=== PATIENT | female | born 1995 | race Caucasian/White ===

== ENCOUNTER 2020-09-18 14:43 | Outpatient (CLI) | payer BC, SELFPAY ==
[2020-09-18 15:40] LABS: SARS-CoV-2 RNA PCR Negative (Negative)
== END 2020-09-18 14:44 | disposition home or self-care (01) ==
PROVIDERS: PCP Family Medicine
DX: Z31.7 Encounter for procreative management and counseling for gestational carrier (principal); Z20.822 Contact with and (suspected) exposure to COVID-19
CPT/HCPCS: C9803; U0003; U0005

== ENCOUNTER 2020-10-24 09:42 | Outpatient (CLI) | payer BC, SELFPAY ==
[2020-10-24 10:22] LABS: Thyroid Stimulating Hormone Reflex 7.83 u/IU/mL (0.36-3.74)
[2020-10-24 10:23] LABS: Free T4 Free Thyroxine Reflex 1.08 ng/dL (0.76-1.46)
== END 2020-10-24 09:43 | disposition home or self-care (01) ==
PROVIDERS: PCP Family Medicine
DX: Z31.7 Encounter for procreative management and counseling for gestational carrier (principal); Z32.00 Encounter for pregnancy test, result unknown
CPT/HCPCS: 36415; 84439; 84443; 84702

== ENCOUNTER 2020-10-28 08:36 | Outpatient (CLI) | payer BC, SELFPAY | END 2020-10-28 08:37 | disposition home or self-care (01) | LOC: CHSLAB 08:41 | PROVIDERS: PCP Family Medicine | DX: Z31.7 Encounter for procreative management and counseling for gestational carrier (principal) | CPT/HCPCS: 36415; 84702 ==

== ENCOUNTER 2021-06-05 00:21 | Observation (INO) | payer BC, OTHER, SELFPAY ==
--- NOTE | 2021-06-05 00:21 | OBADM ---
This patient, Chapis Das, admitted to the OB room OB Post 115 for observation. Patient/family oriented to hospital policies and general routines including ID bracelet, bed and alarms, visiting hours, pain management, procedures, bathroom and other care routines, personal items, smoking policy, room service/diet, and visiting hours. Patient/Family are encouraged to report perceived risks to care and to ask questions if they do not understand what they are told or what they should do.
[2021-06-05 00:50] VITALS: BP 141/88; PULSE 93
[2021-06-05 00:58] LABS: Add Urine Microscopic? NO; Appearance Urine Clear (Clear); Bilirubin Urine Negative (Negative); Blood Urine Negative (Negative); Color Urine Straw (Yellow); Glucose Urine UA Negative (Negative); Ketones Urine Negative (Negative); Leukocyte Esterase Ur Negative LEU/UL (NEGATIVE); Nitrate Urine Negative (Negative); Protein Urine Negative (Negative); Specific Grav Ur 1.008 (1.001-1.035); Urobilinogen Urine Negative mg/dL (<2.0)
[2021-06-05 01:00] VITALS: BP 126/87; PULSE 87; TEMP 36.6
[2021-06-05 01:15] VITALS: BP 118/83; PULSE 83
--- NOTE | 2021-06-11 07:28 | P.PNOB_ITS ---
OB - Triage/Final Diagnosis Visit Information Date of evaluation: 06/05/21 Reason for evaluation: threatened labor Comments/Additional reasons for admission: I have assessed the risk for this patient, Chapis Das, and determined that she would benefit from obs ervation care. Evaluation Laboratory results: Laboratory Tests 06/05/21 00:43 Urine Color Straw Urine Appearance Clear Urine pH 6.0 Ur Specific [place] 1.008 Urine Protein Negative Urine Glucose (UA) Negative Urine Ketones Negative Ur Blood (Man) Negative Urine Nitrate Negative Urine Bilirubin Negative Urine Urobilinogen Negative Ur Leukocyte Esterase Negative
== END 2021-06-05 01:40 | disposition home or self-care (01) ==
PROVIDERS: Advanced Practice Midwife; Admitting Provider Obstetrics & Gynecology; PCP Family Medicine; Visit Provider Obstetrics & Gynecology
DX: O47.03 False labor before 37 completed weeks of gestation, third trimester (principal); Z3A.35 35 weeks gestation of pregnancy
CPT/HCPCS: 81003; 84112; 87086; 87088; G0378; G0379

== ENCOUNTER 2021-06-06 12:26 | Outpatient (RCR) | payer BC, OTHER, SELFPAY ==
--- NOTE | ~2021-06-06 | US_ITS ---
EXAMINATION: US OB limited w BPP DATE: 06/06/2021 13:42 INDICATION: COVID-19 pneumonia. Third trimester. TECHNIQUE: Real-time pelvic ultrasound was performed. COMPARISON: None. FINDINGS: There is a single living fetus in vertex presentation. The placenta is posterior. heart rate i s 148 beats per minute (bpm). The amniotic fluid index is 10.8 cm, which is normal. Biophysical profile performed by the technologist: breathing (30 sec sustained breathing in 30 minutes): 2 out of 2 movement (3 gross body movements in 30 minutes): 2 out of 2 tone (one episode of pdsdzju-sndigjscr-cfjvmdq limb movement): 2 out of 2 Amniotic fluid pocket (2 cm): 2 out of 2 Total score: 8 out of 8 IMPRESSION: 1. Single living fetus in vertex presentation. 2. Biophysical profile 8 out of 8. Reviewed, dictated and finalized at location B. HOUSE DIRECTOR
[2021-06-06 13:10] VITALS: BP 124/81; PULSE 114
== END 2021-06-27 20:56 | disposition home or self-care (01) ==
LOC: ANHOBOP 12:26
PROVIDERS: PCP Family Medicine; Visit Provider Obstetrics & Gynecology
DX: O09.813 Supervision of pregnancy resulting from assisted reproductive technology, third trimester (principal); Z86.16 Personal history of COVID-19; Z3A.36 36 weeks gestation of pregnancy
CPT/HCPCS: 59025; 76815; 76819

== ENCOUNTER 2021-06-16 12:16 | Outpatient (CLI) | payer BC, OTHER, SELFPAY ==
[2021-06-16 12:46] VITALS: BP 144/92; PULSE 102
[2021-06-16 12:52] LABS: Basophils Absolute Auto 0.1 K/mm3 (0.0-0.1); Basophils Percent Auto 0.6 % (0.2-1.2); Eosinophils Absolute Auto 0.1 K/mm3 (0-0.3); Eosinophils Percent Auto 1.5 % (0-4.4); Hematocrit 33.1 % (37.0-47.0); Hemoglobin 9.7 g/dL (12.0-15.0); Immature Granulocyte Absolute 0.05 K/mm3 (0.00-0.031); Immature Granulocyte Percent A 0.6 % (0-0.5); Lymphocytes Absolute Auto 1.85 K/mm3 (0.9-3.2); Lymphocytes Percent Auto 22.6 % (18.3-44.2); Mean Corpuscular HGB Conc 29.3 g/dl (32-36); Mean Corpuscular Hemoglobin 22.4 pg (26-34); Mean Corpuscular Volume 76.3 fl (80-100); Mean Platelet Volume 10.1 fl (7.4-10.4); Monocytes Absolute Auto 0.9 K/mm3 (0.1-0.6); Monocytes Percent Auto 11.2 % (2.6-8.5); Neutrophils Absolute Auto 5.2 K/mm3 (1.3-6.7); Neutrophils Percent Auto 63.5 % (45.5-73.1); Platelet Count Result 287 k/mm3 (150-375); Red Blood Count 4.34 M/mm3 (4.2-5.4); Red Cell Distribution Width 14.7 % (11.5-14.5); White Blood Count 8.2 K/mm3 (4.5-10.0)
[2021-06-16 12:55] LABS: Add Urine Microscopic? NO; Appearance Urine Clear (Clear); Bilirubin Urine Negative (Negative); Blood Urine Negative (Negative); Color Urine Colorless (Yellow); Glucose Urine UA Negative (Negative); Ketones Urine Negative (Negative); Leukocyte Esterase Ur Negative LEU/UL (NEGATIVE); Nitrate Urine Negative (Negative); Protein Urine Negative (Negative); Urobilinogen Urine Negative mg/dL (<2.0)
[2021-06-16 13:01] VITALS: BP 126/88; PULSE 90
[2021-06-16 13:03] LABS: Creatinine Urine 17.1 mg/dL; Total Protein Urine Random 15 mg/dL; Ur Ttl Prot Creatinine Ratio 0.88 mg/mg (0-0.20)
[2021-06-16 13:13] LABS: Microcytosis 1+ (NORMAL); Platelet Estimate Adequate (Adequate)
[2021-06-16 13:14] LABS: Alanine Aminotransferase 8 U/L (4-35); Albumin Level 3.6 g/dL (3.5-5.1); Alkaline Phosphatase 127 U/L (38-126); Anion Gap 8 mmol/L (8-16); Aspartate Amino Transferase 23 U/L (14-36); Bilirubin,Total 0.3 mg/dL (0.2-1.3); Blood Urea Nitrogen 8 mg/dL (7-17); Calcium 8.7 mg/dL (8.4-10.2); Carbon Dioxide 22 mmol/L (22-30); Chloride 106 mmol/L (98-107); Estimated Glomerular Filt Rate > 60; Glucose 99 mg/dL (65-110); Potassium 3.8 mmol/L (3.4-5.0); Sodium 136 mmol/L (137-145); Uric Acid 5.5 mg/dL (2.5-7.5)
[2021-06-16 13:16] VITALS: BP 124/85; PULSE 96
[2021-06-16 13:31] VITALS: BP 126/89; PULSE 91
[2021-06-16 13:46] VITALS: BP 125/90; PULSE 89
[2021-06-16 13:49] LABS: Specific Grav Ur 1.002 (1.001-1.035)
--- NOTE | 2021-06-16 14:06 | PC.NURSE ---
1350- Spoke to Ty Stephen CNM, BP's and labs reviewed. Orders to discharge to home with 24 hour urine. Patient to call and be seen in office on wednesday.
== END 2021-06-16 14:05 | disposition home or self-care (01) ==
LOC: ANHOBOP 12:21 → ANHOBPP 12:24
PROVIDERS: PCP Family Medicine; Visit Provider Advanced Practice Midwife
DX: O13.9 Gestational [pregnancy-induced] hypertension without significant proteinuria, unspecified trimester (principal); Z3A.00 Weeks of gestation of pregnancy not specified
CPT/HCPCS: 36415; 59025; 80053; 81003; 81050; 82570; 82575; 84156; 84550; 85025; 87086; 99199

== ENCOUNTER 2021-06-17 18:07 | Outpatient (CLI) | payer BC, OTHER, SELFPAY ==
[2021-06-17 19:06] LABS: Collection Time Urine 24 HOURS; Total Volume 24 Hour Urine 3000 ml
[2021-06-17 19:12] LABS: Total Volume 24 Hour Urine 3000 ml
[2021-06-17 19:13] LABS: Patient Weight 166 Lbs
[2021-06-17 19:21] LABS: Total Protein Urine 24 Hr 360 mg/24hr (28-141); Total Protein Urine Random 12 mg/dL
[2021-06-17 19:22] LABS: Creatinine Clearance Urine 112.7 ml/min (75-125); Creatinine Urine 43.5 mg/dL
== END 2021-06-17 18:08 | disposition home or self-care (01) ==
PROVIDERS: PCP Family Medicine; Visit Provider Obstetrics & Gynecology
DX: Z34.90 Encounter for supervision of normal pregnancy, unspecified, unspecified trimester (principal); Z3A.00 Weeks of gestation of pregnancy not specified
CPT/HCPCS: 81050; 82575; 84156

== ENCOUNTER 2021-06-18 18:56 | Inpatient (IN) | payer BC, OTHER, SELFPAY ==
[2021-06-18] VITALS (11 sets, daily range): BP systolic 103–148; BP diastolic 63–98; PULSE 76–104; RESP 18; TEMP 36.8; BMI 30.8
--- OUTSIDE RECORDS SUMMARY | 2021-06-18 19:01 | XMS_ITS | Encounter Summary ---
:1995 Author Reason for Visit NST [id number] EDC 07/04/2021 Assessment and Plan 1. Hypothyroidism in ? non-stress test Discussion Note: None recorded.Patient educational handouts: No information available. Plan of Care Reminders Provider Appointments U/s Ob 06/23/2021 Ultrasou nd, TECH Growth 10:00AM ? Ob Routine 06/23/2021 Julia Schroeder, 11:45AM CNM ? Nst 06/23/2021 Nst, , EQUI P 11:00AM ? U/S OB BPP 06/30/2021 Ultras ound, TECH 10:30AM ? Ob Routine 06/30/2021 Samara Th erese 11:30AM MD Shereen ? Nst 06/30/2021 Nst, , EQUI P 11:00AM ? Repeat Pap on or around Mikael yani Craig 12/23/2021 MD [facility] None ? ? recorded. Referral None ? ? recorded. Procedures None ? ? recorded. Surgeries None ? ? recorded. Imaging Non-stress 06/09/2021 [facility]ambo avelar Test Medications Name Start Date ? ? ? Synthroid 25 mcg tablet ? Take 1 tablet every day by oral route. Medications Administered None recorded. Vitals Height Weight BMI Blood Pressure
--- OUTSIDE RECORDS SUMMARY | 2021-06-18 19:01 | XMS_ITS | Encounter Summary ---
:1995 Author Reason for Visit None recorded. Assessment and Plan 1. IVF - in-vitro fertilization ? US, obstetric, biophysical profile + non-stress test Discussion Note: None recorded.Patient educational handouts: No information available. Plan of Care Reminders Provider Appointments U/s Ob Growth 06/23/2021 U ltrasound, 10:00AM TECH ? Ob Routine 06/23/2021 Julia E 11:45AM JENNIFER Schroeder ? Nst 06/23/2021 Nst, , EQUI P 11:00AM ? U/S OB BPP 06/30/2021 Ultras ound, 10:30AM TECH ? Ob Routine 06/30/2021 Samara Th erese 11:30AM MD Shereen ? Nst 06/30/2021 Nst, , EQUI P 11:00AM ? Repeat Pap on or around Mikael Craig 12/23/2021 MD [facility] None ? ? recorded. Referral None ? ? recorded. Procedures None ? ? recorded. Surgeries None ? ? recorded. Imaging US, 06/09/2021 [facility], Biophysical Profile + Non-stress Test Medications Name Start Date ? ? ? Synthr
--- OUTSIDE RECORDS SUMMARY | 2021-06-18 19:01 | XMS_ITS | Encounter Summary ---
:1995 Author Reason for Visit NST [id number] EDC 07/04/2021 Assessment and Plan 1. Hypothyroidism in ? non-stress test Discussion Note: None recorded.Patient educational handouts: No information available. Plan of Care Reminders Provider Appointments U/s Ob 06/23/2021 Ultrasou nd, TECH Growth 10:00AM ? Ob Routine 06/23/2021 uJlia Schroeder, 11:45AM CNM ? Nst 06/23/2021 Nst, [...] Surgeries None ? ? recorded. Imaging Non-stress 06/16/2021 [facility] avelar Test Medications Name Start Date ? ? ? Synthroid 25 mcg tablet ? Take 1 tablet every day by oral route. Medications Administered None recorded. Vitals Height Weight BMI Blood Pressure
--- OUTSIDE RECORDS SUMMARY | 2021-06-18 19:01 | XMS_ITS | Encounter Summary ---
[...] Routine 06/30/2021 Samara Th erese 11:30AM MD Shreeen ? Nst 06/30/2021 Nst, , EQUI P 11:00AM ? Repeat Pap on or around Mikael Craig 12/23/2021 MD [facility] None ? ? recorded. Referral None ? ? recorded. Procedures None ? ? recorded. Surgeries None ? ? recorded. Imaging US, 06/16/2021 [facility], Biophysical Profile + Non-stress Test Medications Name Start Date ? ? ? Synthr
--- OUTSIDE RECORDS SUMMARY | 2021-06-18 19:01 | XMS_ITS | Encounter Summary ---
:1995 Author Reason for Visit OB visit [id number] Assessment and Plan 1. Routine care Discussion Note: None recorded.Patient educational handouts: No [...] recorded. Surgeries None ? ? recorded. Imaging None ? ? recorded. Medications Name Start Date ? ? ? Synthroid 25 mcg tablet ? Take 1 tablet every day by oral route. Medications Administered None recorded. Vitals Height Weight BMI Blood Pressure 5 ft 4 in 160 lbs 27.5 kg/m2
--- OUTSIDE RECORDS SUMMARY | 2021-06-18 19:01 | XMS_ITS ---
:1995 Author Care Team Providers Name Role Phone Julia Schroeder Primary Care Provider Unavailable Allergies Code Code System Name Reaction Severity Status Onset Penicillins Rash ? Active ? Medications Name Status Start Date Stop Date ? ? clindamycin HCl 150 mg capsule Completed ? 06/21/2020 TAKE 1 CAPSULE BY MOUTH EVERY 6 HOURS Diflucan 150 mg tablet Completed 04/01/2016 7 take 1 tablet by oral route once hydrocodone 7.5 mg-acetaminophen 325 mg tablet Completed ? 04/21/2021 TAKE 1 TABLET BY MOUTH EVERY 6 HOURS NEEDED FOR PAIN iron 18 mg tablet Completed ? 01/16/2019 Monistat 7 2 % vaginal cream Completed 09/04/2015 insert 1 applicatorful by vaginal route every day at bedtime Nexplanon 68 mg subdermal Completed ? 2018 implant Active ? Not available Synthroid Completed ? 01/29/2021 Synthroid 25 mcg tablet Active ? Not avai lable Take 1 tablet every day by oral route. Synthroid 75 mcg tablet Completed ? 04/21/20 21 TAKE 1 TABLET BY MOUTH EVERY DAY Triveen-Duo DHA 29 mg-1 mg-400 mg oral pack Completed 08/2210/01/2015 take 2 by Oral route once for 30 days Problems Name Status Onset Date Source ? Hemorrhagic Complication of Unknown 09/02/2015 History Gestation Less than 9 Weeks Unknown 09/02/2015 Hist ory Gestation Period, 9 Weeks Unknown 09/02/2015 Histor y Uterine Size for Dates Discrepancy Unknown 09/02/2015 History
--- OUTSIDE RECORDS SUMMARY | 2021-06-18 19:01 | XMS_ITS | Encounter Summary ---
:1995 Author Reason for Visit OB visit OB [id number] EDC 07/04/2021 LMP 09/24/2020 Assessment and Plan Assessment Note Patient is _35__weeks . Dis cussed plan. 1. Routine care Discussion Note: None recorded.Patient [...] 1 tablet every day by oral route. Med
--- OUTSIDE RECORDS SUMMARY | 2021-06-18 19:01 | XMS_ITS | Encounter Summary ---
:1995 Author Reason for Visit None recorded. Assessment and Plan 1. Central nervous system malfor mation in fetus affecting obstetrical care ? US, obstetric, follow-up ? US, obstetric, biophysical profile Discussion Note: None recorded.Patient educational handouts: No [...] Surgeries None ? ? recorded. Imaging US, 06/02/2021 [place] [facility], Follow-up ? US, 06/02/2021 [facility], Biophysical Profile
--- OUTSIDE RECORDS SUMMARY | 2021-06-18 19:01 | XMS_ITS | Encounter Summary ---
:1995 Author Reason for Visit OB visit OB [id number] EDC 07/04/2021 LMP 09/24/2020 Assessment and Plan Assessment Note Patient is _37__weeks . Dis cussed plan. 1. Routine care [...]
--- OUTSIDE RECORDS SUMMARY | 2021-06-18 19:02 | XMS_ITS | Encounter Summary ---
:1995 Author Reason for Visit OB visit Assessment and Plan Assessment Note Patient is ___weeks . Discu ssed plan. 1. Routine care Discussion Note: None [...] oral route. Medications Administered None recorded. Vitals He
--- NOTE | 2021-06-18 21:10 | LDADM ---
This patient, Chapis Das, was admitted to Labor/Delivery/Recovery 107 on 06/18/21 at 18:56. Plans for labor, pain management and were discussed with patient. Patient/family oriented to hospital policies and general routines including ID bracelet, bed and alarms, visiting hours, pain management, procedures, bathroom and other care routines, personal items, smoking policy, room service/diet and guest tray routines, infant security routines, and visiting hours. Patient/Family are encouraged to report perceived risks to care and to ask questions if they do not understand what they are told or what they should do. See OBIX for further documentation.
[2021-06-18] MEDS: DINOPROSTONE 10 MG VAG INSERT VAGINAL (21:41)
[2021-06-18 21:57] LABS: Basophils Percent Auto 0.4 % (0.2-1.2); Eosinophils Absolute Auto 0.1 K/mm3 (0-0.3); Eosinophils Percent Auto 1.1 % (0-4.4); Hematocrit 34.8 % (37.0-47.0); Hemoglobin 10.5 g/dL (12.0-15.0); Immature Granulocyte Absolute 0.04 K/mm3 (0.00-0.031); Immature Granulocyte Percent A 0.4 % (0-0.5); Lymphocytes Absolute Auto 2.06 K/mm3 (0.9-3.2); Lymphocytes Percent Auto 21.7 % (18.3-44.2); Mean Corpuscular HGB Conc 30.2 g/dl (32-36); Mean Corpuscular Hemoglobin 22.7 pg (26-34); Mean Corpuscular Volume 75.2 fl (80-100); Mean Platelet Volume 10.2 fl (7.4-10.4); Monocytes Absolute Auto 0.9 K/mm3 (0.1-0.6); Monocytes Percent Auto 9.3 % (2.6-8.5); Neutrophils Absolute Auto 6.4 K/mm3 (1.3-6.7); Neutrophils Percent Auto 67.1 % (45.5-73.1); Platelet Count Result 311 k/mm3 (150-375); Red Blood Count 4.63 M/mm3 (4.2-5.4); Red Cell Distribution Width 14.9 % (11.5-14.5); White Blood Count 9.5 K/mm3 (4.5-10.0)
[2021-06-18 22:05] LABS: Uric Acid 5.3 mg/dL (2.5-7.5)
[2021-06-18 22:16] LABS: Alanine Aminotransferase 6 U/L (4-35); Albumin Level 3.7 g/dL (3.5-5.1); Alkaline Phosphatase 132 U/L (38-126); Anion Gap 9 mmol/L (8-16); Aspartate Amino Transferase 23 U/L (14-36); Bilirubin,Total 0.2 mg/dL (0.2-1.3); Blood Urea Nitrogen 10 mg/dL (7-17); Calcium 9.1 mg/dL (8.4-10.2); Carbon Dioxide 21 mmol/L (22-30); Chloride 103 mmol/L (98-107); Estimated CRCL calculation 85 ml/min; Estimated Glomerular Filt Rate > 60; Glucose 103 mg/dL (65-110); Potassium 3.6 mmol/L (3.4-5.0); Sodium 133 mmol/L (137-145)
[2021-06-19] VITALS (159 sets, daily range): BP systolic 101–214; BP diastolic 50–190; PULSE 31–182; RESP 16; TEMP 36.5–37.3; O2SAT 88–100
[2021-06-19 07:12] LABS: Rapid Plasma Reagin Non-Reactive (NonReactive)
[2021-06-19] MEDS: LACTATED RINGERS 1,000 ML 125 ML IV CONT ×2 (10:10→18:16)
[2021-06-19] MEDS: OXYTOCIN 30 UNITS/NS 500 ML 30 UNITS/500 ML BAG 125 UNITS IV CONT ×2 (10:10→22:26)
--- NOTE | 2021-06-19 12:19 | WPDANESEPP ---
Anes - Eval Pre Procedure Procedure: labor epidural Date/Time: 06/19/21 12:19 Surgeon: iggy Preop Diagnosis: pain during labor Pre Op Diagnosis: Induction Patient Data Age: 26 Gender: F Height: 1.55 m Weight: 74 kg Last Vital Signs Temp 36.6 C 06/19/21 04:03 Pulse 88 06/19/21 12:16 Resp 16 06/19/21 04:03 BP 132/87 06/19/21 12:16 Allergies Allergy/AdvReac Type Severity Reaction Status Date / Time Penicillins Allergy Intermediate HIVES Verified 06/17/18 03:06 Home Medications Medication Instructions Recorded Confirmed Type PNV cmb#95-ferrous fumarate-FA 1 tablet PO DAILY 06/02/21 06/16/21 History [] aspirin 81 mg PO DAILY 06/02/21 06/16/21 History Laboratory Tests 06/18/21 06/18/21 06/18/21 21:36 21:36 21:36 WBC 9.5 K/mm3 K/mm3 (4.5-10.0) RBC 4.63 M/mm3 M/mm3 (4.2-5.4) Hgb 10.5 g/dL L g/dL (12.0-15.0) Hct 34.8 % L % (37.0-47.0) MCV 75.2 fl L fl (80-100) MCH 22.7 pg L pg (26-34) MCHC 30.2 g/dl L g/dl (32-36) RDW 14.9 % H % (11.5-14.5) Plt Count 311 k/mm3 k/mm3 (150-375) MPV 10.2 fl fl (7.4-10.4) Immature Gran % (Auto) 0.4 % % (0-0.5) Neut % (Auto) 67.1 % % (45.5-73.1) Lymph % (Auto) 21.7 % % (18.3-44.2) Gregg % (Auto) 9.3 % H % (2.6-8.5) Eos % (Auto) 1.1 % % (0-4.4) Baso % (Auto) 0.4 % % (0.2-1.2) Lymph # (Auto) 2.06 K/mm3 K/mm3 (0.9-3.2) Gregg # (Auto) 0.9 K/mm3 H K/mm3 (0.1-0.6) Eos # (Auto) 0.1 K/mm3 K/mm3 (0-0.3) Baso # (Auto) 0.0 K/mm3 K/mm3 (0.0-0.1) Abs Immat Gran (auto) 0.04 K/mm3 H K/mm3 (0.00-0.031) Absolute Neuts (auto) 6.4 K/mm3 K/mm3 (1.3-6.7) Absolute Nucleated RBC 0.0 K/mm3 K/mm3 (0.0-0.012) Nucleated RBC % 0.0 % % (0.0-0.2) Sodium Potassium Chloride Carbon Dioxide Anion Gap BUN Creatinine Estim Creat Clear Calc Estimated GFR Glucose Uric Acid 5.3 mg/dL mg/dL (2.5-7.5) Calcium Total Bilirubin AST ALT Alkaline Phosphatase Total Protein Albumin RPR Non-reactive (NonReactive) Blood Type Antibody Screen 06/18/21 06/18/21 21:36 21:36 WBC RBC Hgb Hct MCV MCH MCHC RDW Plt Count MPV Immature Gran % (Auto) Neut % (Auto) Lymph % (Auto) Gregg % (Auto) Eos % (Auto) Baso % (Auto) Lymph # (Auto) Gregg # (Auto) Eos # (Auto) Baso # (Auto) Abs Immat Gran (auto) Absolute Neuts (auto) Absolute Nucleated RBC Nucleated RBC % Sodium 133 mmol/L L mmol/L (137-145) Potassium 3.6 mmol/L mmol/L (3.4-5.0) Chloride 103 mmol/L mmol/L (98-107) Carbon Dioxide 21 mmol/L L mmol/L (22-30) Anion Gap 9 mmol/L mmol/L (8-16) BUN 10 mg/dL mg/dL (7-17) Creatinine 0.80 mg/dL mg/dL (0.7-1.0) Estim Creat Clear Calc 85 ml/min ml/min Estimated GFR > 60 (59 - ) Glucose 103 mg/dL mg/dL (65-110) Uric Acid Calcium 9.1 mg/dL mg/dL (8.4-10.2) Total Bilirubin 0.2 mg/dL mg/dL (0.2-1.3) AST 23 U/L U/L (14-36) ALT 6 U/L U/L (4-35) Alkaline Phosphatase 132 U/L H U/L (38-126) Total Protein 7.0 g/dL g/dL (6.3-8.2) Albumin 3.7 g/dL g/dL (3.5-5.1) RPR Blood Type A Positive Antibody Screen Negative Patient hx anesthesia problems: none Family hx anesthesia problems: non
[2021-06-19 16:41] LABS: Glucose Point of Care 73 mg/dl (65-105)
[2021-06-19] MEDS: ONDANSETRON INJ 4 MG/2 ML VIAL IV PUSH (16:43)
[2021-06-19] MEDS: fentaNYL CITRATE INJ (*CRX) 100 MCG/2 ML VIAL 50 MCG IV PUSH (17:36)
[2021-06-19 18:46] LABS: Amphetamine Screen Urine Negative (Negative); Barbiturate Screen Urine Negative (Negative); Benzodiazepines Screen Urine Negative (Negative); Cannabinoid Screen Urine Negative (Negative); Cocaine Screen Urine Negative (Negative); Methadone Screen Urine Negative (Negative); Opiate Screen Urine Negative (Negative); Phencyclidine Screen Urine Negative (Negative)
--- NOTE | 2021-06-19 22:13 | WPDOBADMIT ---
Obstetrics - Admit Note Admission Note: 26 y/o @ 37w6d here for induction d/t gestational hypertension. It is of note that she is a surrogate. record reviewed. No pertinent additions to the history and/or any subsequent changes in the physical findings that are not consistent with the expected course of the were found. Additions to the history and/or subsequent changes in the physical findings follow. None.
--- NOTE | 2021-06-19 22:14 | PM.OBPRVD ---
OB - Delivery Note Procedure Delivery date: 06/19/21 Procedure: events: Induced HTN and Labor Induction Intrapartal events: None Induction method: per pitocin protocol Delivery monitor: external FHT, external uterine and internal uterine Route of delivery: Episiotomy description: None Laceration Description: None Quantitative Blood Loss (ml): 181 Anesthesia type: Epidural Narrative: Cord gasses collected and handed off to staff. handed off to staff. Both in stable condition. Baby Date of : 06/19/21 Time of : 21:52 Weeks of gestation at delivery: 37 Weight (pounds): 6 Weight (ounces): 14 presentation: vertex position: Right Occiput Anterior Placenta delivery description: Spontaneous score one minute: 8 score five minutes: 9
[2021-06-19] MEDS: LORazepam (*CRX) 0.5 MG TABLET 1 MG PO (23:09)
[2021-06-19] MEDS: IBUPROFEN 600 MG TABLET PO (23:11)
[2021-06-19] MEDS: BENZOCAINE 20% AER SPR (*SP) 56 GM CAN 1 SPRAY TOPICAL (23:39)
[2021-06-19] MEDS: WITCH HAZEL 40 PADS 1 PAD TOPICAL (23:39)
[2021-06-20 00:26] VITALS: BP 127/80; PULSE 105; RESP 18; TEMP 36.9
--- NOTE | 2021-06-20 00:26 | ADMGEN ---
This patient, Chapis Das, was admitted to OB 2nd Floor Room 278-00. Patient/family oriented to hospital policies and general routines including ID bracelet, bed and alarms, visiting hours, pain management, procedures, bathroom and other care routines, personal items, smoking policy, room service/diet, and visiting hours. Information on how to activate the Rapid Response Team has been discussed. Patient/Family are encouraged to report perceived risks to care and to ask questions if they do not understand what they are told or what they should do.
[2021-06-20 04:04] VITALS: BP 118/66; PULSE 98; RESP 16; TEMP 36.8
[2021-06-20 05:22] LABS: Hematocrit 30.2 % (37.0-47.0); Hemoglobin 9.4 g/dL (12.0-15.0)
--- NOTE | 2021-06-20 07:28 | PM.OBPNVD ---
OB - PN: Subj Subjective Date/time seen: 06/20/21 07:28 Interval history: surrogate Patient comments: other (c/o anxiety) baby status: doing well OB - PN: Obj Data Labs CBC & Chem 7: 06/20/21 03:30 06/18/21 21:36 Labs: Laboratory Results - last 24 hr 06/19/21 06/19/21 06/20/21 16:31 18:19 03:30 Hgb 9.4 L Hct 30.2 L POC Capillary Glucose 73 Urine Opiates Screen Negative Urine Methadone Screen Negative Ur Barbiturates Screen Negative Ur Phencyclidine Scrn Negative Ur Amphetamine Screen Negative U Benzodiazepines Scrn Negative Urine Cocaine Screen Negative U Cannabinoids Screen Negative OB - PN A/P Plan day: 1 Plan: routine care and discharge home Comments: start zoloft 25 mg f/u in office 2 weeks, reviewed se risks and benefits if any suicidal thoughts to ED Time Spent With Patient Time: Total time spent is greater than 50% in coordination of care (as documented) at patient's floor/unit and/or counseling patient: Review of Systems Review of Systems: All systems reviewed & are unremarkable except as noted in HPI and below Exam Const: General: cooperative, healthy appearing and comfortable
--- NOTE | 2021-06-20 07:34 | PM.OBDSVD ---
DS: Admitting Diagnosis Discharge Date 06/20/21 Admitting Diagnosis preeclampsia IOL OB - DS: Summary OB Procedures : PIH Mgmt OB Procedures Intrapartum: Spontaneous Vag Delivery OB Procedures: : None Time Spent with Patient Time attestation: Total time spent providing and/or coordinating discharge services: DS: Data Data Completed and Pending Pending studies at discharge: Pending at discharge 06/19/21 22:00 Surgical [PTH] Routine Labs on day of discharge: Labs from last 24 hours 06/20/21 06/19/21 06/19/21 03:30 18:19 16:31 Hgb 9.4 L Hct 30.2 L POC Capillary Glucose 73 Urine Opiates Screen Negative Urine Methadone Screen Negative Ur Barbiturates Screen Negative Ur Phencyclidine Scrn Negative Ur Amphetamine Screen Negative U Benzodiazepines Scrn Negative Urine Cocaine Screen Negative U Cannabinoids Screen Negative Discharge Plan Discharge Attending physician on discharge: Amarjit Pizarro Discharging Clinician: Julia Schroeder Patient Disposition: Home, Self-Care Activity: pelvic rest Diet: regular Patient Instructions: Antibiotic Form Stand Alone Forms: General Discharge Information Follow-up/Referrals: Luisa Stephen CNM [Certified Nurse College Physics Instructor] - Discharge Medications: New sertraline [Zoloft] 25 mg tablet 25 mg PO DAILY Qty: 30 RF: 0 ondansetron 4 mg tablet,disintegrating 4 mg PO Q8H PRN (Reason: nausea and vomiting) Qty: 30 RF: 0 Continued PNV cmb#95-ferrous fumarate-FA [] 28 mg iron- 800 mcg Tablet 1 tablet PO DAILY RF: 0 Discontinued aspirin 81 mg Tablet 81 mg PO DAILY RF: 0 Date of admission: 06/18/21 18:56 Primary Care Provider: Raphael Dos Santos Admitting Provider: Amarjit Pizarro Attending physician on admission: Amarjit Pizarro Condition: Stable
[2021-06-20 07:45] VITALS: BP 91/55; PULSE 76; RESP 16; TEMP 36.6; O2SAT 99
[2021-06-20] MEDS: MULTIVIT/MIN/PREN/FOL AC/IRON TABLET 1 TAB PO (10:08)
[2021-06-20] MEDS: DOCUSATE SODIUM 100 MG CAPSULE PO (10:08)
[2021-06-20] MEDS: POLYSACCHARIDE IRON COMPLEX 150 MG CAPSULE PO (10:08)
[2021-06-20] MEDS: SERTRALINE HCL 25 MG TABLET PO (10:08)
== END 2021-06-20 11:48 | disposition home or self-care (01) | DRG 807 ==
LOC: ANHLDR 06-19 07:53 → ANHOB2 06-20 00:30
PROVIDERS: Advanced Practice Midwife; Admitting Provider Obstetrics & Gynecology; PCP Family Medicine; Visit Provider Obstetrics & Gynecology
DX: O13.4 Gestational [pregnancy-induced] hypertension without significant proteinuria, complicating childbirth (principal); Z37.0 Single live birth; Z3A.37 37 weeks gestation of pregnancy
CPT/HCPCS: 36415; 80053; 80307; 82948; 84550; 85014; 85018; 85025; 86592; 86850; 86900; 86901; 88307; A9270; J2405; J2590; J2795; J3010; J7120

== ENCOUNTER 2021-12-07 14:30 | Emergency (ER) | payer OTHER, SELFPAY ==
[2021-12-07 14:35] VITALS: BP 149/102; PULSE 100; RESP 17; TEMP 36.8; O2SAT 99
--- NOTE | 2021-12-07 15:16 | ECG_ITS ---
Measurements Intervals [place] Rate: 91 P: 53 ND: 177 QRS: 18 QRSD: 95 T: 30 QT: 361 QTc: 445 Interpretive Statements SINUS RHYTHM BORDERLINE T WAVE ABNORMALITY- INFERIOR LEADS BORDERLINE ECG Electronically Signed On 12-07-2021 23:12:47 CDT by Bipin Go D.O.
[2021-12-07 16:02] LABS: Basophils Absolute Auto 0.1 K/mm3 (0.0-0.1); Basophils Percent Auto 0.7 % (0.2-1.2); Eosinophils Absolute Auto 0.1 K/mm3 (0-0.3); Eosinophils Percent Auto 0.9 % (0-4.4); Immature Granulocyte Absolute 0.04 K/mm3 (0.00-0.031); Immature Granulocyte Percent A 0.3 % (0-0.5); Lymphocytes Absolute Auto 1.85 K/mm3 (0.9-3.2); Lymphocytes Percent Auto 15.2 % (18.3-44.2); Mean Corpuscular HGB Conc 30.6 g/dl (32-36); Mean Corpuscular Hemoglobin 22.1 pg (26-34); Mean Corpuscular Volume 72.4 fl (80-100); Mean Platelet Volume 9.9 fl (7.4-10.4); Monocytes Absolute Auto 0.8 K/mm3 (0.1-0.6); Monocytes Percent Auto 6.6 % (2.6-8.5); Neutrophils Absolute Auto 9.3 K/mm3 (1.3-6.7); Neutrophils Percent Auto 76.3 % (45.5-73.1); Platelet Count Result 391 k/mm3 (150-375); Red Blood Count 4.97 M/mm3 (4.2-5.4); Red Cell Distribution Width 15.5 % (11.5-14.5); White Blood Count 12.2 K/mm3 (4.5-10.0)
[2021-12-07 16:13] LABS: Alanine Aminotransferase 7 U/L (6-35); Albumin Level 4.6 g/dL (3.5-5.1); Alkaline Phosphatase 84 U/L (38-126); Anion Gap 7 mmol/L (8-16); Aspartate Amino Transferase 25 U/L (14-36); Bilirubin,Total 0.2 mg/dL (0.2-1.3); Blood Urea Nitrogen 14 mg/dL (7-17); Calcium 8.9 mg/dL (8.4-10.2); Carbon Dioxide 27 mmol/L (22-30); Chloride 106 mmol/L (98-107); Estimated Glomerular Filt Rate 60; Glucose 101 mg/dL (65-110); Potassium 3.4 mmol/L (3.4-5.0); Sodium 140 mmol/L (137-145)
[2021-12-07 16:15] LABS: Appearance Urine Clear (Clear); Bilirubin Urine Negative (Negative); Blood Urine Negative (Negative); Glucose Urine UA Negative (Negative); Ketones Urine Negative (Negative); Leukocyte Esterase Ur Negative LEU/UL (Negative); Nitrate Urine Negative (Negative); Protein Urine Negative (Negative); Specific Grav Ur 1.015 (1.001-1.035); Urobilinogen Urine 0.2 mg/dL (<2.0)
[2021-12-07 16:17] LABS: Add Urine Microscopic? NO; Color Urine Light Yellow (Yellow)
[2021-12-07 16:22] LABS: Anisocytosis 1+ (NORMAL); Microcytosis 1+ (NORMAL); Ovalocytes 1+ (NORMAL); Platelet Estimate Increased (Adequate)
--- NOTE | 2021-12-07 16:47 | ED.GENADULT ---
HPI - General Adult General Chief complaint: Dizziness Stated complaint: syncopal Time Seen by Provider: 12/07/21 15:39 History of Present Illness HPI narrative: 26-year-old female presenting to the emergency department for evaluation of multiple episodes of near syncope. Patient states over the last few weeks she has had multiple episodes of near syncope. Patient states that she is able to since then oncoming. Patient states that she has checked her blood sugar and checked her blood pressures after the episodes and they have been within normal limits. Patient was attempting to follow-up with her primary care physician but felt the symptoms were having too frequently so she decided to follow-up with urgent care. While patient was at urgent care she felt she was having a another episode and urgent care called EMS for transport to the emergency department. Patient states she did not actually have a syncopal episode today. Patient states she has been eating and drinking well. Patient states that she did stop taking her Zoloft and Wellbutrin just prior to all these episodes starting. Patient does report she does have increased anxiety since stopping the meds. Patient is unsure if the anxiety is the underlying cause for these possible vasovagal episodes Related Data Home Medications Medication Instructions Recorded Confirmed vit no.95-ferrous 1 tablet PO DAILY 06/02/21 06/16/21 fumarate 28 mg-folic acid 800 mcg tablet () Allergies Allergy/AdvReac Type Severity Reaction Status Date / Time Penicillins Allergy Intermediate HIVES Verified 06/17/18 03:06 Review of Systems Review of Systems: CONSTITUTIONAL: Denies fever, chills, or sweats. EYES: Denies visual changes, redness, or discharge. ENT: Denies rhinorrhea, congestion, sore throat, or otalgia. CARDIOVASCULAR: Denies chest pain, palpitations, or edema. RESPIRATORY: Denies cough or dyspnea. GASTROINTESTINAL: Denies abdominal pain, nausea, vomiting, or diarrhea. GENITOURINARY: Denies dysuria or hematuria. SKIN: Denies rash or itching. MUSCULOSKELETAL: Denies back pain, joint pain, or myalgia. NEUROLOGIC: Near syncope [facility] Past Medical History Medical History (Updated 12/08/21 @ 00:00 by Meredith Nieves) Intrauterine Family History Family History (Updated 06/02/21 @ 14:36 by Alecia Gibson RN) Other No pertinent family history Social History Social History Smoking status: Former smoker Second hand tobacco smoke exposure: No Substance use: never Spiritual care concerns: No Exam Narrative: APPEARANCE: Well appearing, no pain, no distress, well-nourished. HEAD: normocephalic, atraumatic. EYES: PERRLA/EOMI, conjunctivae clear. NOSE: Normal no drainage THROAT: Pharynx clear, no exudate. NECK: Supple. No adenopathy, no masses. RESPIRATORY: Airway patent, respirations nonlabored. Clear to auscultation bilaterally, no rales, rhonchi, wheezing. CARDIOVASCULAR: Regular rate and rhythm without murmurs rubs or gallops. ABDOMINAL: Soft, nontender, nondistended, normal bowel sounds MUSCULOSKELETAL: Moves all extremities. Strength/ROM intact, No edema, No calf tenderness. NEURO: Alert. Cranial nerves II through XII intact. Grossly intact SKIN: Warm, dry. Normal Color Course Course Emergency Course: Patient did feel improved with treatment. Vital Signs Vital signs: Vital Signs Temperature 98.3 F 12/07/21 14:35 Pulse Rate 100 12/07/21 14:35 Respiratory Rate 17 12/07/21 14:35 Blood Pressure 149/102 H 12/07/21 14:35 Pulse Oximetry 99 12/07/21 14:35 Oxygen Delivery Room Air 12/07/21 14:35 Temperature 98.3 F 12/07/21 14:35 Pulse Rate 95 12/07/21 19:42 Respiratory Rate 18 12/07/21 19:42 Blood Pressure 115/77 12/07/21 19:42 Pulse Oximetry 100 12/07/21 19:42 Oxygen Delivery Room Air 12/07/21 14:35 Medical Decision Making Vital Signs Vital Signs: Vital Signs [place]
[2021-12-07] MEDS: SODIUM CHLORIDE 0.9% IV 1,000 ML 999 ML IV CONT ×2 (17:14→18:38)
[2021-12-07 17:19] LABS: Magnesium 1.8 mg/dL (1.6-2.3)
[2021-12-07 19:42] VITALS: BP 115/77; PULSE 95; RESP 18; O2SAT 100
== END 2021-12-07 19:41 | disposition home or self-care (01) ==
PROVIDERS: Physician Assistant; Emergency Provider Emergency Medicine; PCP Family Medicine
DX: R55 Syncope and collapse (principal); Z87.891 Personal history of nicotine dependence
CPT/HCPCS: 36415; 80053; 81003; 81025; 83735; 84443; 85025; 93005; 96360; 96361; 99283; J7030

== ENCOUNTER 2022-06-03 13:41 | Outpatient (CLI) | payer OTHER, SELFPAY ==
[2022-06-03 14:25] LABS: Basophils Percent Auto 0.8 % (0.0-1.0); Eosinophils Absolute Auto 0.25 K/mm3 (0.02-0.50); Hematocrit 44.3 % (35.0-49.0); Hemoglobin 15.2 g/dL (12.0-15.0); Immature Granulocyte Absolute 0.04 K/mm3 (0.00-0.00); Immature Granulocyte Percent A 0.3 % (0.0-0.0); Immature Reticulocyte Fraction 11.2 % (2.0-16.52); Lymphocytes Absolute Auto 3.03 K/mm3 (1.10-4.50); Lymphocytes Percent Auto 23.6 % (18.0-42.0); Mean Corpuscular HGB Conc 34.3 g/dL (32.0-36.0); Mean Corpuscular Hemoglobin 29.5 pg (27.0-31.0); Mean Corpuscular Volume 85.9 fL (78.0-102.0); Mean Platelet Volume 9.7 fl (9.2-11.8); Monocytes Absolute Auto 1.07 K/mm3 (0.10-0.90); Monocytes Percent Auto 8.3 % (2.0-11.0); Neutrophils Absolute Auto 8.3 K/mm3 (1.7-7.2); Platelet Count Result 444 K/mm3 (150-420); Red Blood Count 5.16 M/mm3 (4.20-5.40); Red Cell Distribution Width 12.1 % (11.6-14.4); Reticulocyte Percent 2.11 % (0.50-1.50); Reticulocytes Absolute 0.11 M/mm3 (0.02-0.1); White Blood Count 12.8 K/mm3 (4.8-10.8)
[2022-06-03 14:28] LABS: Add Urine Microscopic? NO; Appearance Urine Clear (Clear); Bilirubin Urine Negative (Negative); Blood Urine Negative (Negative); Color Urine Light Yellow (Yellow); Glucose Urine UA Negative (Negative); Ketones Urine Negative (Negative); Leukocyte Esterase Ur Negative (Negative); Nitrate Urine Negative (Negative); Protein Urine Negative (Negative); Specific Grav Ur <= 1.005 (1.010-1.020); Urobilinogen Urine 0.2 mg/dL (0.2-1.0); pH Urine 6.5 (5.0-8.0)
--- NOTE | 2022-06-03 14:34 | ECG_ITS ---
Measurements Intervals [place] Rate: 92 P: 61 ND: 152 QRS: 20 QRSD: 93 T: 34 QT: 346 QTc: 429 Interpretive Statements SINUS RHYTHM BASELINE ARTIFACT- III NORMAL ECG COMPARED TO ECG 12/07/2021 16:10:59 NO SIGNIFICANT CHANGES Electronically Signed On 06-03-2022 14:52:55 PHARMACY TECHNOLOGIST by Bipin Go D.O.
[2022-06-03 14:43] LABS: Creatinine Urine 26.85 mg/dL (40-278); MALB Creatinine Ratio 48.4 mg/g (0-30); Microalbumin Urine Random < 13.0 mg/L
[2022-06-03 14:53] LABS: SPREG INTERNAL CONTROL Positive; Serum Qual hCG Negative
[2022-06-03 15:07] LABS: Albumin Level 3.9 g/dL (3.4-5.0); Alkaline Phosphatase 90 U/L (46-116); Anion Gap 8 mmol/L (8-16); Aspartate Amino Transferase 13 U/L (15-37); Bilirubin,Total 0.2 mg/dL (0.00-1.00); Blood Urea Nitrogen 12 mg/dL (7-18); Carbon Dioxide 30 mmol/L (21-32); Chloride 99 mmol/L (98-108); Estimated Glomerular Filt Rate > 60; Ferritin 35 ng/mL (8-252); Glucose 115 mg/dL (70-99); Iron 86 ug/dL (50-170); Osmolality Calculated 284 mOsm/kg (285-295); Percent Iron Saturation 22 % (12-57); Potassium 3.8 mmol/L (3.5-5.1); Sodium 137 mmol/L (136-145); Thyroid Stimulating Hormone 2.71 uIU/mL (0.36-3.74); Total Protein 7.9 g/dL (6.4-8.2)
[2022-06-03 15:17] LABS: Alanine Aminotransferase 9 U/L (14-59)
[2022-06-03 19:40] LABS: Hemoglobin A1C 5.1 % (<5.7)
== END 2022-06-03 13:42 | disposition home or self-care (01) ==
LOC: CHSLAB 13:46
PROVIDERS: PCP Family Medicine; Visit Provider Family Medicine
DX: D50.9 Iron deficiency anemia, unspecified (principal); R03.0 Elevated blood-pressure reading, without diagnosis of hypertension; R53.83 Other fatigue
CPT/HCPCS: 36415; 80053; 81003; 82043; 82728; 83036; 83540; 83550; 84443; 84703; 85025; 85046; 93005

== ENCOUNTER 2022-06-04 02:29 | Emergency (ER) | payer OTHER, SELFPAY ==
--- NOTE | ~2022-06-04 | XR_ITS ---
EXAMINATION: XR chest 2V DATE: 06/04/2022 03:01 INDICATION: Chest pain. TECHNIQUE: Frontal and lateral views of the chest were obtained. COMPARISON: Chest 2 views 06/17/2018 FINDINGS: There is no pneumonia, pleural effusion, or pneumothorax. The heart size is normal. IMPRESSION: 1. No acute cardiopulmonary disease. Reviewed, dictated and finalized at location A. [employer]
[2022-06-04 02:31] VITALS: BP 123/90; PULSE 89; RESP 16; TEMP 36.9; O2SAT 100
--- NOTE | 2022-06-04 02:35 | ECG_ITS ---
Measurements Intervals [place] Rate: 89 P: 54 NV: 153 QRS: 21 QRSD: 95 T: 57 QT: 349 QTc: 425 Interpretive Statements SINUS RHYTHM BASELINE ARTIFACT- I, II, AVR NORMAL ECG COMPARED TO ECG 06/03/2022 14:34:55 NO SIGNIFICANT CHANGES Electronically Signed On 06-04-2022 6:53:07 FIRE HYDRANT OPERATOR by Bipin Go D.O.
[2022-06-04 02:36] VITALS: PULSE 94
[2022-06-04 02:42] LABS: Basophils Absolute Auto 0.1 K/mm3 (0.0-0.1); Eosinophils Absolute Auto 0.4 K/mm3 (0-0.3); Eosinophils Percent Auto 3.1 % (0-4.4); Hematocrit 43.3 % (37.0-47.0); Immature Granulocyte Absolute 0.04 K/mm3 (0.00-0.031); Immature Granulocyte Percent A 0.3 % (0-0.5); Lymphocytes Absolute Auto 3.31 K/mm3 (0.9-3.2); Lymphocytes Percent Auto 28.6 % (18.3-44.2); Mean Corpuscular HGB Conc 34.6 g/dl (32-36); Mean Corpuscular Hemoglobin 29.5 pg (26-34); Mean Corpuscular Volume 85.2 fl (80-100); Mean Platelet Volume 9.6 fl (7.4-10.4); Monocytes Absolute Auto 1.1 K/mm3 (0.1-0.6); Monocytes Percent Auto 9.6 % (2.6-8.5); Neutrophils Absolute Auto 6.6 K/mm3 (1.3-6.7); Neutrophils Percent Auto 57.4 % (45.5-73.1); Platelet Count Result 376 k/mm3 (150-375); Red Blood Count 5.08 M/mm3 (4.2-5.4); Red Cell Distribution Width 12.2 % (11.5-14.5); White Blood Count 11.6 K/mm3 (4.5-10.0)
[2022-06-04 02:52] LABS: Prothrombin Time 12.5 Seconds (11.1-14.7)
[2022-06-04 02:53] LABS: Partial Thromboplastin Time 30.4 SECONDS (22.3-36.8)
[2022-06-04 02:59] LABS: Alanine Aminotransferase 12 U/L (6-35); Albumin Level 4.5 g/dL (3.5-5.1); Alkaline Phosphatase 74 U/L (38-126); Anion Gap 8 mmol/L (8-16); Aspartate Amino Transferase 26 U/L (14-36); Bilirubin,Total 0.3 mg/dL (0.2-1.3); Blood Urea Nitrogen 9 mg/dL (7-17); Calcium 9.3 mg/dL (8.4-10.2); Carbon Dioxide 27 mmol/L (22-30); Chloride 104 mmol/L (98-107); Estimated Glomerular Filt Rate > 60; Glucose 109 mg/dL (65-110); Lipase 40 U/L (23-300); Potassium 3.5 mmol/L (3.4-5.0); Sodium 139 mmol/L (137-145)
[2022-06-04 03:10] LABS: Troponin I < 0.012 ng/mL (0.000-0.034)
--- NOTE | 2022-06-04 03:15 | ED.CHESTPAIN ---
HPI - Chest Pain General Chief Complaint: Chest Pain Stated Complaint: CP Time Seen by Provider: 06/04/22 02:39 History of Present Illness HPI narrative: Patient states that she has been feeling more anxious than usual lately, she usually takes hydroxyzine in the morning and at night, she used to be on Zoloft but she weaned herself off of this. We will going to bed she has had an episode of anxiety, she took hydroxyzine and felt better, but then she started having some anxiety and chest tightness and trouble breathing again. She has had symptoms like this in the past and she has had panic attacks in the past. Related Data Home Medications Medication Instructions Recorded Confirmed vit no.95-ferrous 1 tablet PO DAILY 06/02/21 06/16/21 fumarate 28 mg-folic acid 800 mcg tablet () Allergies Allergy/AdvReac Type Severity Reaction Status Date / Time Penicillins Allergy Intermediate HIVES Verified 06/04/22 02:37 Review of Systems Review of Systems: CONST: No fever. HEENT: No sore throat C/V: Chest tightness RESP: Mild shortness of breath GI: No abdominal pain : No dysuria. M/S: No joint pain. SKIN: No rash. NEURO: [No headache or focal numbness or weakness] PSYCH: Anxious [facility] Past Medical History Medical History (Updated 06/04/22 @ 03:44 by Sunita Dumont MD) Anxiety Intrauterine Family History Family History (Updated 06/04/22 @ 03:44 by Sunita Dumont MD) Other Anxiety Social History Social History Smoking status: Former smoker Second hand tobacco smoke exposure: No Substance use: never Spiritual care concerns: No Exam Narrative: EXAMINATION OF ORGAN SYSTEMS/BODY AREAS: Constitutional: Vital signs per nursing GENERAL: Resting comfortably in bed HEAD: Normal with no signs of head trauma. EYES: EOMI, conjunctiva normal ENT: Hearing grossly intact LUNGS: Nonlabored breathing. HEART: [Regular rate and rhythm] ABD: [Soft], [nontender to palpation] EXT: Normal range of motion SKIN: [No rashes or lesions.] NEURO: [Alert and oriented x 3. No gross focal sensory or strength deficits.] PSYCH: Slightly anxious affect Course Vital Signs Vital signs: Vital Signs Temperature 98.4 F 06/04/22 02:31 Pulse Rate 89 06/04/22 02:31 Respiratory Rate 16 06/04/22 02:31 Blood Pressure 123/90 06/04/22 02:31 Pulse Oximetry 100 06/04/22 02:31 Oxygen Delivery Room Air 06/04/22 02:31 Temperature 98.4 F 06/04/22 02:31 Pulse Rate 87 06/04/22 03:40 Respiratory Rate 19 06/04/22 03:40 Blood Pressure 123/87 06/04/22 03:40 Pulse Oximetry 97 06/04/22 03:40 Oxygen Delivery Room Air 06/04/22 02:31 MDM - Chest Pain MDM Narrative Medical decision making narrative: ED COURSE AND MEDICAL DECISION MAKIN-year-old female presenting with chest pain. EKG done in triage negative for acute ischemic changes. Cardiac workup is initiated. EKG: Performed in triage and interpreted by me. Normal sinus rhythm. Rate 89. Normal axis. MO normal. QRS duration normal. QTc normal. No pathologic Q waves. No ST segment elevation or depression to suggest acute ischemia. No RV strain pattern. HEART score is 0 with no acute ischemic changes on EKG and negative troponin making ACS unlikely. Wells low risk with negative PERC making PE unlikely. Presentation not consistent with dissection or aneurysm without radiation of pain or pulse deficits. CXR negative for mediastinal widening. No abdominal pain or signs of sepsis that would be concerning for esophageal perforation or mediastinitis. No cardiomegaly or JVD to suggest pericardial effusion/tamponade. I suspect most likely anxiety given her increasing anxiety and not being on any medications for this. I have urged patient to follow-up with her therapist and possibly psychiatrist as she would likely benefit from better coping mechanisms and antianxiety medicatio
[2022-06-04] MEDS: LORazepam INJ (*CRX) 2 MG/ML VIAL 0.5 MG IV PUSH (03:24)
[2022-06-04 03:40] VITALS: BP 123/87; PULSE 87; RESP 19; O2SAT 97
== END 2022-06-04 03:40 | disposition home or self-care (01) ==
PROVIDERS: Emergency Provider Emergency Medicine; PCP Family Medicine
DX: F41.9 Anxiety disorder, unspecified (principal); R07.89 Other chest pain; Z87.891 Personal history of nicotine dependence
CPT/HCPCS: 36415; 71046; 80053; 83690; 84484; 85025; 85610; 85730; 93005; 96374; 99284; J2060

== ENCOUNTER 2022-12-15 16:34 | Outpatient (CLI) | payer OTHER, SELFPAY ==
[2022-12-15 17:00] VITALS: BP 131/69; PULSE 96
== END 2022-12-15 17:35 | disposition home or self-care (01) ==
LOC: ANHOBOP 16:41 → ANHOBPP 16:44
PROVIDERS: PCP Family Medicine; Visit Provider Obstetrics & Gynecology
DX: O42.90 Premature rupture of membranes, unspecified as to length of time between rupture and onset of labor, unspecified weeks of gestation (principal); Z3A.00 Weeks of gestation of pregnancy not specified
CPT/HCPCS: 59025; 84112; 99199

== ENCOUNTER 2023-03-06 05:56 | Inpatient (IN) | payer OTHER, SELFPAY ==
[2023-03-06] VITALS (175 sets, daily range): BP systolic 88–144; BP diastolic 62–100; PULSE 64–185; RESP 16–18; TEMP 36.6–37.2; O2SAT 86–100; BMI 33.3
--- NOTE | 2023-03-06 06:32 | LDADM ---
This patient, Chapis Das, was admitted to Labor/Delivery/Recovery 104 on 03/06/23 at 05:56. Plans for labor, pain management and were discussed with patient. Patient/family oriented to hospital policies and general routines including ID bracelet, bed and alarms, visiting hours, pain management, procedures, bathroom and other care routines, personal items, smoking policy, room service/diet and guest tray routines, infant security routines, and visiting hours. Patient/Family are encouraged to report perceived risks to care and to ask questions if they do not understand what they are told or what they should do. See OBIX for further documentation.
[2023-03-06 06:41] LABS: Basophils Percent Auto 0.5 % (0.2-1.2); Eosinophils Absolute Auto 0.1 K/mm3 (0-0.3); Eosinophils Percent Auto 1.4 % (0-4.4); Hematocrit 39.7 % (37.0-47.0); Hemoglobin 11.9 g/dL (12.0-15.0); Immature Granulocyte Absolute 0.03 K/mm3 (0.00-0.031); Immature Granulocyte Percent A 0.4 % (0-0.5); Lymphocytes Percent Auto 29.3 % (18.3-44.2); Mean Corpuscular Hemoglobin 23.6 pg (26-34); Mean Corpuscular Volume 78.8 fl (80-100); Mean Platelet Volume 10.4 fl (7.4-10.4); Monocytes Absolute Auto 0.4 K/mm3 (0.1-0.6); Monocytes Percent Auto 4.7 % (2.6-8.5); Neutrophils Percent Auto 63.7 % (45.5-73.1); Platelet Count Result 303 k/mm3 (150-375); Red Blood Count 5.04 M/mm3 (4.2-5.4); Red Cell Distribution Width 14.9 % (11.5-14.5); White Blood Count 7.9 K/mm3 (4.5-10.0)
[2023-03-06 06:52] LABS: Alanine Aminotransferase 12 U/L (6-35); Albumin Level 3.9 g/dL (3.5-5.1); Alkaline Phosphatase 129 U/L (38-126); Anion Gap 10 mmol/L (8-16); Aspartate Amino Transferase 29 U/L (14-36); Bilirubin,Total 0.6 mg/dL (0.2-1.3); Blood Urea Nitrogen 7 mg/dL (7-17); Calcium 9.1 mg/dL (8.4-10.2); Carbon Dioxide 21 mmol/L (22-30); Chloride 103 mmol/L (98-107); Estimated CRCL calculation 100 ml/min; Estimated Glomerular Filt Rate > 60; Glucose 125 mg/dL (65-110); Potassium 3.9 mmol/L (3.4-5.0); Sodium 134 mmol/L (137-145)
[2023-03-06 06:54] LABS: Uric Acid 5.9 mg/dL (2.5-7.5)
[2023-03-06] MEDS: ONDANSETRON INJ 4 MG/2 ML VIAL IV PUSH (06:57)
[2023-03-06] MEDS: miSOPROStol 25 MCG TABLET 50 MCG PO (07:34)
--- NOTE | 2023-03-06 07:35 | WPDOBADMIT ---
Obstetrics - Admit Note Admission Note: record reviewed. No pertinent additions to the history and/or any subsequent changes in the physical findings that are not consistent with the expected course of the were found. admit IOL, GDMA-1, Gestational HTN, plan cytotec, US at bs, vertex Additions to the history and/or subsequent changes in the physical findings follow. None.
[2023-03-06 11:30] LABS: Glucose Point of Care 87 mg/dl (65-105)
[2023-03-06] MEDS: LACTATED RINGERS 1,000 ML 125 ML IV CONT (11:35)
--- NOTE | 2023-03-06 11:54 | WPDANESEPP ---
Anes - Eval Pre Procedure Procedure: labor epidural Date/Time: 03/06/23 11:54 Preop Diagnosis: labor pain Pre Op Diagnosis: IOL Patient Data Age: 27 Gender: F Height: 1.55 m Weight: 80 kg Last Vital Signs Temp 36.9 C 03/06/23 11:00 Pulse 82 03/06/23 08:01 Resp 16 03/06/23 11:00 BP 118/82 03/06/23 08:01 O2 Del Method Room Air 03/06/23 06:31 Allergies Allergy/AdvReac Type Severity Reaction Status Date / Time Penicillins Allergy Intermediate HIVES Verified 03/03/23 15:19 Home Medications Medication Instructions Recorded Confirmed Type vit no.95-ferrous 1 tablet PO DAILY 06/02/21 03/06/23 History fumarate 28 mg-folic acid 800 mcg tablet () ondansetron 4 mg disintegrating 4 mg PO Q8H PRN nausea and 06/20/21 Rx tablet vomiting #30 tabs sertraline 25 mg tablet (Zoloft) 25 mg PO DAILY #30 tabs 06/20/21 Rx Laboratory Tests 03/06/23 03/06/23 06:22 11:27 WBC 7.9 K/mm3 (4.5-10.0) RBC 5.04 M/mm3 (4.2-5.4) Hgb 11.9 L D g/dL (12.0-15.0) Hct 39.7 % (37.0-47.0) MCV 78.8 L fl (80-100) MCH 23.6 L pg (26-34) MCHC 30.0 L g/dl (32-36) RDW 14.9 H % (11.5-14.5) Plt Count 303 k/mm3 (150-375) MPV 10.4 fl (7.4-10.4) Immature Gran % (Auto) 0.4 % (0-0.5) Neut % (Auto) 63.7 % (45.5-73.1) Lymph % (Auto) 29.3 % (18.3-44.2) Ward % (Auto) 4.7 % (2.6-8.5) Eos % (Auto) 1.4 % (0-4.4) Baso % (Auto) 0.5 % (0.2-1.2) Lymph # (Auto) 2.30 K/mm3 (0.9-3.2) Ward # (Auto) 0.4 K/mm3 (0.1-0.6) Eos # (Auto) 0.1 K/mm3 (0-0.3) Baso # (Auto) 0.0 K/mm3 (0.0-0.1) Abs Immat Gran (auto) 0.03 K/mm3 (0.00-0.031) Absolute Neuts (auto) 5.0 K/mm3 (1.3-6.7) Absolute Nucleated RBC 0.0 K/mm3 (0.0-0.012) Nucleated RBC % 0.0 % (0.0-0.2) Sodium 134 L mmol/L (137-145) Potassium 3.9 mmol/L (3.4-5.0) Chloride 103 mmol/L (98-107) Carbon Dioxide 21 L mmol/L (22-30) Anion Gap 10 mmol/L (8-16) BUN 7 mg/dL (7-17) Creatinine 0.70 mg/dL (0.7-1.0) Estim Creat Clear Calc 100 ml/min Estimated GFR > 60 (59 - ) Glucose 125 H mg/dL (65-110) POC Capillary Glucose 87 mg/dl (65-105) Uric Acid 5.9 mg/dL (2.5-7.5) Calcium 9.1 mg/dL (8.4-10.2) Total Bilirubin 0.6 mg/dL (0.2-1.3) AST 29 U/L (14-36) ALT 12 U/L (6-35) Alkaline Phosphatase 129 H U/L (38-126) Total Protein 8.0 g/dL (6.3-8.2) Albumin 3.9 g/dL (3.5-5.1) RPR Pending Blood Type A Positive Antibody Screen Negative Patient hx anesthesia problems: none Family hx anesthesia problems: none Results Review: All pre-operative results and documents have been reviewed as part of the pre-operative evaluation. [facility] Past Medical History Medical History Anxiety Intrauterine Family History Family History Other Anxiety Social History Social History Smoking status: Former smoker Tobacco type: cigarettes Second hand tobacco smoke exposure: No Additional smoking assessment comments: pack per week Substance use: never Lack of Transportation: No Lack of Food: Never True Current Housing: I Have Housing Concerned About Future Housing: No Difficulty Paying Gas/Electric Bills: No Difficulty Paying for Meds: No Currently Unemployed: No Education: High School Diploma/GED Difficulty w/ Childcare or Family Care: No Spiritual care concerns: No Exam Day of Procedure 03/06/23 11:54 Patient weight: normal Heart: regular rate and rhythm Lungs: clear to ausculta
--- NOTE | 2023-03-06 14:38 | PM.OBPNLAB ---
Pain Control Date/time seen: 03/06/23 14:38 pt comfortable with epidural SVE /-3, AROM moderate amount of clear, odorless fluid, IUPC placed anticipate vaginal delivery.
[2023-03-06 15:25] LABS: Glucose Point of Care 79 mg/dl (65-105)
[2023-03-06] MEDS: OXYTOCIN 30 UNITS/NS 500 ML 30 UNITS/500 ML BAG IV CONT (15:40)
[2023-03-06 19:29] LABS: Glucose Point of Care 78 mg/dl (65-105)
[2023-03-06] MEDS: SODIUM CHLORIDE 0.9% IV 300 ML 600 ML I-UTERINE (20:49)
--- NOTE | 2023-03-06 21:52 | PM.OBPRVD ---
OB - Delivery Note Procedure Delivery date: 03/06/23 Procedure: Events: Gestational Diabetes and Gestational Hypertension Induction method: AROM, Per Misoprostol Protocol and Per Pitocin Protocol Delivery monitor: External FHT and External Uterine Route of delivery: Episiotomy description: None Laceration Description: None Specimen: Yes Quantitative Blood Loss (ml): 125 Anesthesia type: Epidural Disposition: Floor Baby Date of : 03/06/23 Time of : 21:35 Weeks of gestation at delivery: 37 gender: Male Weight (pounds): 6 Weight (ounces): 1 presentation: vertex position: Left Occiput Anterior Placenta delivery description: Manual Removal Cord Vessel Description: 3 Vessels, Nuchal Cord and Loose score one minute: 6 score five minutes: 8 Narrative: baby to warmer for evaluation, then mother and baby skin to skin in stable condition
[2023-03-06] MEDS: OXYTOCIN 30 UNITS/NS 500 ML 30 UNITS/500 ML BAG 125 UNITS IV CONT (22:20)
[2023-03-06] MEDS: CLINDAMYCIN 900 MG/D5W 50 ML 900 MG/50 ML PIGGYBACK 50 MG IVPB (22:44)
[2023-03-06] MEDS: WITCH HAZEL 40 PADS 1 PAD TOPICAL (23:48)
[2023-03-06] MEDS: BENZOCAINE 20% AER SPR (*SP) 56 GM CAN 1 SPRAY TOPICAL (23:48)
[2023-03-07 01:07] VITALS: BP 126/85; PULSE 66; RESP 16; TEMP 37.1; O2SAT 100
--- NOTE | 2023-03-07 03:45 | OBPPTRN ---
03/07/2023 at 0100 Patient transferred to post room #281 via wheelchair. Support person present and both oriented to unit, room, information board, rooming in, admission packet and security measures. Patient verbalizes understanding.
[2023-03-07 05:49] LABS: Hematocrit 32.5 % (37.0-47.0); Hemoglobin 9.7 g/dL (12.0-15.0)
[2023-03-07 08:00] VITALS: BP 113/76; PULSE 56; RESP 18; TEMP 36.5; O2SAT 99
[2023-03-07] MEDS: MULTIVIT/MIN/PREN/FOL AC/IRON TABLET 1 TAB PO (09:05)
[2023-03-07] MEDS: POLYSACCHARIDE IRON COMPLEX 150 MG CAPSULE PO ×2 (09:05→16:34)
[2023-03-07] MEDS: DOCUSATE SODIUM 100 MG CAPSULE PO ×2 (09:05→16:34)
[2023-03-07] MEDS: IBUPROFEN 600 MG TABLET PO ×2 (09:06→14:34)
--- NOTE | 2023-03-07 09:49 | PM.OBPNVD ---
OB - PN: Subj Subjective Date/time seen: 03/07/23 09:49 Interval history: pp day 1 blood pressures stable denies simpson, visual changes, epigastric pain baby on D10 OB - PN: Obj Data Labs 03/07/23 05:11 03/06/23 06:22 Labs: Laboratory Results - last 24 hr 03/06/23 03/06/23 03/06/23 11:27 15:20 19:25 Hgb Hct POC Capillary Glucose 87 79 78 03/07/23 05:11 Hgb 9.7 L Hct 32.5 L POC Capillary Glucose OB - PN A/P Plan day: 1 Time Spent With Patient Time: Total time spent is greater than 50% in coordination of care (as documented) at patient's floor/unit and/or counseling patient: Review of Systems Review of Systems: All systems reviewed & are unremarkable except as noted in HPI and below Exam Const: General: cooperative and healthy appearing Chest: Chest palpation & inspection: normal inspection of the chest Resp: Effort & Inspection: normal respiratory effort GI: Other: soft Skin: General skin exam: normal color Neuro: General: patient oriented x3 Extrem: Right lower extremity: normal to inspection Left lower extremity: normal to inspection
[2023-03-07] MEDS: ESCITALOPRAM OXALATE 10 MG TABLET 20 MG PO (11:43)
[2023-03-07 12:05] VITALS: BP 117/73; PULSE 72; RESP 18; TEMP 36.7; O2SAT 100
--- NOTE | 2023-03-07 12:26 | WPDANLDPN2 ---
Anes-Prog Note L&D Date/Time: 03/07/23 12:26 Comfortable throughout: labor and delivery Neuraxial method: epidural Epidural/Spinal procedure site: clean & non-tender Neuro status: Neuro function grossly intact. Cardiovascular status: normal Respiratory status: normal Airway patency: baseline Mental status: baseline Post-Op hydration status: normal Vital Signs: Last Vital Signs Temp 36.5 C 03/07/23 08:00 Pulse 56 L 03/07/23 08:00 Resp 18 03/07/23 08:00 BP 113/76 03/07/23 08:00 Pulse Ox 99 03/07/23 08:00 O2 Del Method Room Air 03/07/23 08:00 Pain score (VAS): 2/10 I/O: Intake & Output 03/06/23 03/07/23 03/07/23 23:59 07:59 15:59 Intake Total 600 Output Total 125 100 350 Balance -125 -100 250 Post-procedural complaints: none Patient feedback: Patient satisfied with anesthetic care.
[2023-03-07 16:30] VITALS: BP 117/85; PULSE 66; RESP 18; TEMP 36.4; O2SAT 98
[2023-03-07 19:54] VITALS: BP 108/68; PULSE 69; RESP 18; TEMP 36.4; O2SAT 98
[2023-03-07 21:57] LABS: Rapid Plasma Reagin Non-Reactive (NonReactive)
[2023-03-08] MEDS: IBUPROFEN 600 MG TABLET PO (01:02)
[2023-03-08 02:19] VITALS: BP 120/88; PULSE 60; RESP 16; TEMP 36.5; O2SAT 99
[2023-03-08 07:55] VITALS: BP 117/79; PULSE 64; RESP 16; TEMP 36.6; O2SAT 99
[2023-03-08] MEDS: POLYSACCHARIDE IRON COMPLEX 150 MG CAPSULE PO (08:40)
[2023-03-08] MEDS: DOCUSATE SODIUM 100 MG CAPSULE PO (08:40)
[2023-03-08] MEDS: MULTIVIT/MIN/PREN/FOL AC/IRON TABLET 1 TAB PO (08:40)
[2023-03-08] MEDS: ESCITALOPRAM OXALATE 10 MG TABLET 20 MG PO (08:41)
--- NOTE | 2023-03-08 08:41 | PM.OBPNVD ---
OB - PN: Subj Subjective Date/time seen: 03/08/23 08:41 Interval history: pp day 1 blood pressures stable denies simpson, visual changes, epigastric pain baby on D10 Patient comments: no complaints, pain well controlled and tolerating diet OB - PN: Obj Data Labs 03/07/23 05:11 03/06/23 06:22 Labs: Laboratory Results - last 24 hr 03/06/23 06:22 RPR Non-reactive OB - PN A/P Plan day: 2 Plan: routine care and discharge home Time Spent With Patient Time: Total time spent is greater than 50% in coordination of care (as documented) at patient's floor/unit and/or counseling patient: Exam Const: General: comfortable and no acute distress Resp: Effort & Inspection: normal respiratory effort Auscultation: no rales, no rhonchi and no wheezes Cardio: Rate: regular rate Heart sounds: no click, no murmurs and no rubs GI: GI Palp: Yes Soft to palpation and No Tenderness to palpation present (GI) Auscultation: normal bowel sounds Extrem: General: normal to inspection, no pedal edema and no calf tenderness
--- NOTE | 2023-03-08 08:41 | PM.OBDSVD ---
DS: Admitting Diagnosis Discharge Date 03/08/23 Admitting Diagnosis term DS: Discharge Diagnosis Discharge Diagnosis (1) Term delivered: Code(s): O80 - Encounter for full-term uncomplicated delivery Status: Acute OB - DS: Summary OB Procedures : None OB Procedures Intrapartum: Spontaneous Vag Delivery OB Procedures: : None Time Spent with Patient Time attestation: Total time spent providing and/or coordinating discharge services: DS: Data Data Completed and Pending Labs on day of discharge: Labs from last 24 hours 03/06/23 06:22 RPR Non-reactive Discharge Plan Discharge Discharging Clinician: Amarjit Pizarro Patient Disposition: Home, Self-Care Activity: pelvic rest Diet: regular Patient Instructions: Antibiotic Form Stand Alone Forms: General Discharge Information Follow-up/Referrals: Amarjit Pizarro MD [Physician] - Discharge Medications: Continued PNV cmb#95-ferrous fumarate-FA [] 28 mg iron- 800 mcg Tablet 1 tablet PO DAILY sertraline [Zoloft] 25 mg tablet 25 mg PO DAILY Qty: 30 0RF ondansetron 4 mg tablet,disintegrating 4 mg PO Q8H PRN (Reason: nausea and vomiting) Qty: 30 0RF Date of admission: 03/06/23 05:56 Primary Care Provider: Raphael Dos Santos Admitting Provider: Amarjit Pizarro Attending physician on admission: Julia Schroeder Condition: Stable
[2023-03-08] MEDS: IBUPROFEN SUSPENSION 200 MG/10 ML UDC 600 MG PO ×2 (10:00→16:42)
--- NOTE | 2023-03-08 12:02 | PC.NURSE ---
[id number] Introductions were made, then consulted with patient to assess needs related to . (one was a surrogate delivery) Mother led the conversation with her?plans to feed?her infant, her history and the?experience so far. Mother works well with her infant with encouragement and education. Encouraged understanding of the benefits of skin to skin (demonstrating unwrapping and placing upright on her chest), stimulating with massage touch, changing positions to encourage wakefulness, how to watch for early feeding cues, responsive feeding, feeding on demand (aiming for 8-12 times in 24 hours, about every 2-3 hours), milk production, building/maintaining a milk supply, duration of feeding, signs of adequate intake/output and how to record on the feeding sheet. Reviewed positioning and ear, shoulder, hip alignment, supporting the breast to facilitate a deep latch, asymmetrical latch (off-center), leading with the chin with a big, open, wide gape and body close to mother. Infant latched optimally to the right breast in cross cradle position. Education given to mother of how to visualize suck/swallow, listen for drinking at the breast and is demonstrating swallowing frequently and spontaneously visually and audibly. Infant was able to maintain latch without discomfort to mother. Nipple care reviewed with optimal latch and good positioning. Infant was placed [id number] upright on mothers chest between her breast. Reviewed good handwashing when or touching the breast/nipples to prevent infection. Once feeding cues were visualized infant was latched optimally to the left breast in cross cradle position. Education given to mother of how to visualize suck/swallow, listen for drinking at the breast and infant is demonstrating swallowing frequently and spontaneously visually and audibly. was able to maintain latch without discomfort to mother. Resources used to facilitate learning were used with the tool, mom and baby guide. Mother voiced understanding of skin to skin, stimulating with massage touch, responsive feedings on demand, talking to to encourage if it has been 2 -2.5 hours since the start of the last , to call if does not latch, or if there is discomfort with . Resources provided for inpatient/outpatient with feeding sheet and the mom/baby guide. Parents voiced understanding of information, demonstrated learning and will call if there is a request for assistance. Reported to the Primary RN. 1020 - Clarified orders with Dr. Small. [id number] had completed a breastfeed of 25 minutes and appears content. Infant is [id number] on mother's chest. Parents were encouraged to breastfeed on demand. 1230 - Primary RN reported that the one hour PP blood sugar is good.
[2023-03-08 12:24] VITALS: BP 124/89; PULSE 77; RESP 16; TEMP 37.3; O2SAT 99
[2023-03-10 12:52] VITALS: BP 129/80; PULSE 87; RESP 18; TEMP 37.1; O2SAT 98
== END 2023-03-08 17:13 | disposition home or self-care (01) | DRG 560 ==
LOC: ANHOB2 03-08 15:44 → ANHLDR 03-09 13:28 → ANHOB2 03-09 13:28
PROVIDERS: Advanced Practice Midwife; Admitting Provider Obstetrics & Gynecology; PCP Family Medicine; Visit Provider Obstetrics & Gynecology
DX: O24.429 Gestational diabetes mellitus in childbirth, unspecified control (principal); Z37.0 Single live birth; Z3A.37 37 weeks gestation of pregnancy; O13.4 Gestational [pregnancy-induced] hypertension without significant proteinuria, complicating childbirth; O69.81X0 Labor and delivery complicated by cord around neck, without compression, not applicable or unspecified
CPT/HCPCS: 36415; 80053; 82948; 84550; 85014; 85018; 85025; 86592; 86850; 86900; 86901; 88307; A9270; J2405; J2590; J2795; J7030; J7120

== ENCOUNTER 2023-05-05 01:34 | Day surgery (SDC) | payer OTHER, SELFPAY ==
[2023-05-03 09:00] VITALS: BMI 28.9
--- NOTE | 2023-05-03 09:28 | SUR.PREOP ---
Report to the Outpatient Waiting Room, entrance under the green pavilion located off [facility], at time 0700 on date 05/05/23. Planned Procedure Time: 0900. Time changes happen often and if your time is changed the preop area will call you the afternoon before. - You and your visitor will be asked to self-screen and do not enter if you have any COVID symptoms. - A mask is optional within the hospital at this time. Patients may have clear liquids (water, carbonated beverages, clear teas, apple juice) until 3 hours prior to surgery with a maximum of 20 ounces. - No food from midnight until time of surgery Take the following medications with a SIP of water the morning of surgery: LEXAPRO, HYDROXAZINE DO NOT STOP ANY OF YOUR OTHER PRESCRIPTION MEDICATIONS PRIOR TO SURGERY ?EXCEPT THE FOLLOWING Medications to discontinue per physician N/A Date to take last dose N/A Please no make-up, nail french, hairspray, perfume, deodorant, or body powder the day of surgery. No jewelry (including any body piercings) or valuables the day of surgery, leave them at home. Please take a shower or bath the night before, or the morning of, surgery with an antibacterial soap. Wear comfortable, loose fitting clothing. Children are encouraged to wear pajamas. - Jewelry must be removed prior to entering the operating room. Rings and piercings that are not removed may be cut off. - The hospital will not accept responsibility for valuables. - Please leave all valuables, including medications, at home the day of surgery. If you are going home after surgery, a licensed class c driver must drive you home. - NO public transportation without another adult if you receive anesthesia. - We recommend that an adult stay with you for 24 hours following discharge. - We also recommend that you do not drive, make important decision, drink alcoholic beverages, or take any drugs that were not prescribed by your health care provider for at least 24 hours after your discharge time. Follow any additional instructions given to you from your surgeon. If you or anyone in your household have experienced Covid symptoms in the past week, please notify your surgeon or the nurse liaison at the phone number below for possible testing. Telephone instructions given to GAUTAM BARBA and asked if any additional questions and then verbalized understanding. Patient advised to call surgeon office or pre surgery nurse liaison [phone] if any additional questions.
[2023-05-05] VITALS (9 sets, daily range): BP systolic 94–124; BP diastolic 62–94; PULSE 68–103; RESP 12–20; TEMP 36.4–36.5; O2SAT 99–100
--- NOTE | 2023-05-05 07:54 | P.PNAN_ITS ---
Anes - Initial Pre Proc Eval Procedure: Operation Date: 05/05/23 09:00 Proposed Procedures p Laparoscopic Bilateral Salpingectomy - Amarjit Pizarro MD Date/Time: 05/05/23 07:54 Surgeon: Amarjit Pizarro MD Pre Op Diagnosis: Female Sterilization Patient Data Age: 28 Gender: F Height: 1.55 m Weight: 69.4 kg Allergies Allergy/AdvReac Type Severity Reaction Status Date / Time Penicillins Allergy Intermediate HIVES Verified 05/05/23 07:48 Home Medications Medication Instructions Recorded Confirmed Type escitalopram oxalate 20 mg tablet 20 mg PO DAILY 05/03/23 05/03/23 History hydroxyzine HCl 25 mg tablet 25 mg PO DAILY 05/03/23 05/05/23 History Patient hx anesthesia problems: none Family hx anesthesia problems: none Results Review: All pre-operative results and documents have been reviewed as part of the pre- operative evaluation. [facility] Past Medical History Medical History Anxiety Intrauterine Family History Family History Other Anxiety Social History Social History Smoking status: Never smoker Tobacco type: cigarettes Second hand tobacco smoke exposure: No Additional smoking assessment comments: pack per week Substance use: current Lack of Transportation: No Lack of Food: Never True Current Housing: I Have Housing Concerned About Future Housing: No Difficulty Paying Gas/Electric Bills: No Difficulty Paying for Meds: No Currently Unemployed: No Education: High School Diploma/GED Difficulty w/ Childcare or Family Care: No Living arrangements: with family Spiritual care concerns: No Anes - Eval Final PreProcedure Day of Procedure 05/05/23 07:54 Patient weight: overweight Heart: regular rate and rhythm Lungs: clear to auscultation Airway: Mallampati scale class II Neurological: alert and oriented Last oral intake: >/= 8 hours ASA classification: II Emergent: no Anesthetic plan: proceed Anesthesia type and monitoring: general ETT and standard monitoring Results Review: All pre-operative results and documents have been reviewed as part of the pre- operative evaluation. Informed Consent: The patient's anesthetic plan and its attendant risks and benefits were discussed with the patient/family/POA. Questions were solicited and answers provided to the satisfaction of the patient/family/POA.
[2023-05-05] MEDS: LACTATED RINGERS 1,000 ML 30 ML IV CONT (07:55)
[2023-05-05] MEDS: KETOROLAC 15 MG/ML VIAL (*BKC) IV PUSH (07:57)
--- NOTE | 2023-05-05 08:15 | WPDHPUPDATE1 ---
History and Physical Update Update Date/Time: 05/05/23 08:15 History and Physical has been reviewed, including an updated exam of the patient. There are NO changes in the patient's condition. Risks, benefits, and alternatives have been discussed and questions answered. Patient agrees to proceed with procedure.
--- NOTE | 2023-05-05 09:20 | W.PM.PROC2 ---
Procedure Note - Detailed Date of Procedure 05/05/23 Pre-op Diagnosis Female Sterilization Post-op Diagnosis Same Procedure Performed Laparoscopic bilateral salpingectomy Surgeon Amarjit Pizarro MD Anesthesia General Indications Unwanted fertility Findings Normal pelvic anatomy Description of Procedure The patient was taken the operating room. She was prepped and draped in the dorsal lithotomy position after induction of general anesthesia. A 5 mm skin incision was made in the left upper quadrant of the abdominal skin. A 5 mm trocar was inserted the intra-abdominal cavity under direct visualization of the scope. Pneumoperitoneum was achieved. A 5 mm trocar was inserted in the left lower quadrant identical fashion. A 5 mm infraumbilical trocar was inserted in identical fashion as well. The bilateral fallopian tubes were removed. This was done by using a LigaSure cautery. The mesosalpinx adjacent to the tube was cauterized transected with LigaSure. This was initiated in the area the ovary and in a stepwise fashion moved medially to the area of the cornu of the uterus. Once there the fallopian tube was cauterized and transected. This was done in identical fashion on each side. The fallopian tubes were taken out through the left lower quadrant trocar site. The pneumoperitoneum was reduced. The trocars removed. The skin was closed with subcuticular 4 Monocryl and covered with Dermabond. She was taken to cover stable condition. Sponge lap and needle counts were correct x2. Estimated Blood Loss 5 Drains No Packing No Pathology Yes Complications No immediate complications Condition Stable Disposition PACU
[2023-05-05] MEDS: oxyCODONE HCL (*CRX) 5 MG TAB IR PO (10:30)
[2023-05-05] MEDS: ONDANSETRON INJ 4 MG/2 ML VIAL IV PUSH (10:31)
== END 2023-05-05 11:42 | disposition home or self-care (01) ==
PROVIDERS: PCP Family Medicine; Visit Provider Obstetrics & Gynecology
PROC: (CPT 49320; principal; 2023-05-05 09:00)
DX: Z30.2 Encounter for sterilization (principal); N83.8 Other noninflammatory disorders of ovary, fallopian tube and broad ligament; F41.9 Anxiety disorder, unspecified; Z79.85 Long-term (current) use of injectable non-insulin antidiabetic drugs
CPT/HCPCS: 58661; 88302; A9270; J1100; J1885; J2250; J2405; J2704; J3010; J7120

== ENCOUNTER 2023-07-16 19:16 | Emergency (ER) | payer OTHER, SELFPAY ==
--- NOTE | ~2023-07-16 | CT_ITS ---
EXAMINATION: CT brain wo con DATE: 07/16/2023 20:07 INDICATION: Near syncope. TECHNIQUE: Computed tomography (CT) of the head was performed without intravenous contrast. The mA wa s adjusted according to patient size. Iterative reconstruction technique was employed. The dose-lengt h product was 529.67 mGy-cm. COMPARISON: None FINDINGS: There is no intracranial hemorrhage, acute infarction, or abnormal intracranial mass lesion . The ventricles are normal in size. The paranasal sinuses are clear. The mastoid air cells are tenisha l. IMPRESSION: 1. Normal brain. Reviewed, dictated and finalized at location E. T PICKER MACHINE OPERATOR IMPRESSION: 1. Normal brain.
[2023-07-16 19:20] VITALS: BP 122/88; PULSE 81; RESP 20; TEMP 36.6; O2SAT 100
--- NOTE | 2023-07-16 19:20 | ED.DIZZY ---
HPI - Dizziness General Chief Complaint: Dizziness Stated Complaint: dizzy Time Seen by Provider: 07/16/23 19:20 Source: patient Mode of arrival: ambulatory Limitations: no limitations History of Present Illness HPI Narrative: Patient is a 28-year-old female with a near syncopal episode prior to arrival. She was sitting on a barstool and got up fast and therefore started to get lightheaded and woozy and near syncope. MD elicited complaint: dizziness, lightheadedness and near syncope Onset (ago): minute(s) (30) Timing: sudden onset Severity: moderate Description: lightheadedness, off-balance and near-syncope History of similar symptoms: No Exacerbating factors: movement/ambulation and change in body position Relieving factors: nothing Associated symptoms: denies other symptoms Related Data Home Medications Medication Instructions Recorded Confirmed escitalopram oxalate 20 mg tablet 20 mg PO DAILY 05/03/23 07/16/23 Allergies Allergy/AdvReac Type Severity Reaction Status Date / Time Penicillins Allergy Intermediate HIVES Verified 05/05/23 07:48 Review of Systems Review of Systems: All systems reviewed & are unremarkable except as noted in HPI and below Constitutional: Constitutional: Reports no additional constitutional complaints Eyes: Eyes: Reports no additional eye complaints ENT: Reports system reviewed and no additional complaints, except as documented Cardiovascular: Cardiovascular: Reports no additional cardiovascular complaints Respiratory: Respiratory: Reports no additional respiratory complaints Gastrointestinal: Gastrointestinal: Reports no additional gastrointestinal complaints Genitourinary: Genitourinary: Reports no additional female genitourinary complaints Musculoskeletal: Musculoskeletal: Reports no additional musculoskeletal complaints Integumentary/Breasts: Skin/Breast: Reports system reviewed and no additional complaints, except as docu Neurologic: Reports system reviewed and no additional complaints, except as documented Psychiatric: Psychiatric: Reports no additional psychiatric complaints Endocrine: Endocrine: Reports no additional endocrine complaints Hematologic/Lymphatic: Hematologic/Lymphatic: Reports no additional hematologic/lymphatic complaints Allergic/Immunologic: Allergic/Immunologic: Reports no additional allergic/immunologic complaints PMFSH Past Medical History Medical History Anxiety Intrauterine Family History Family History Other Anxiety Social History Social History Smoking status: Never smoker Tobacco type: cigarettes Second hand tobacco smoke exposure: No Additional smoking assessment comments: pack per week Substance use: current Lack of Transportation: No Lack of Food: Never True Current Housing: I Have Housing Concerned About Future Housing: No Difficulty Paying Gas/Electric Bills: No Difficulty Paying for Meds: No Currently Unemployed: No Education: High School Diploma/GED Difficulty w/ Childcare or Family Care: No Living arrangements: with family Spiritual care concerns: No Exam Const: General: healthy appearing Nutritional Appearance: well nourished Orientation/consciousness: patient oriented x3 HENMT: Head: normal to inspection Ears: TM's normal bilaterally Face/Nose/Sinus: Normal external nose present Eyes: Conjunctivae: conjunctivae normal Pupils: Equal, round and reactive pupils present EOM: EOMs intact bilaterally Neck: Neck: normal visual inspection Chest: Chest palpation & inspection: normal inspection of the chest Resp: Effort & Inspection: normal respiratory effort and not labored Auscultation: clear to auscultation bilaterally and no crackles Cardio: Rate: regular rate Rhythm: regular rhythm Heart sounds: no
--- NOTE | 2023-07-16 19:24 | ECG_ITS ---
Measurements Intervals Roberts Rate: 81 P: 56 OH: 149 QRS: 18 QRSD: 92 T: 58 QT: 381 QTc: 443 Interpretive Statements SINUS RHYTHM NORMAL ECG COMPARED TO ECG 06/04/2022 02:33:43 NO SIGNIFICANT CHANGES Electronically Signed On 07-17-2023 14:50:02 DAMAGE PREVENTION COORDINATOR by Donnie Nava M.D.
[2023-07-16 19:41] LABS: Eosinophils Absolute Auto 0.47 K/mm3 (0.02-0.50); Eosinophils Percent Auto 4.7 % (1.0-6.0); Hematocrit 42.4 % (35.0-49.0); Hemoglobin 14.2 g/dL (12.0-15.0); Immature Granulocyte Absolute 0.04 K/mm3 (0.00-0.00); Immature Granulocyte Percent A 0.4 % (0.0-0.0); Lymphocytes Absolute Auto 4.27 K/mm3 (1.10-4.50); Lymphocytes Percent Auto 42.4 % (18.0-42.0); Mean Corpuscular HGB Conc 33.5 g/dL (32.0-36.0); Mean Corpuscular Hemoglobin 28.3 pg (27.0-31.0); Mean Corpuscular Volume 84.5 fL (78.0-102.0); Mean Platelet Volume 9.3 fl (9.2-11.8); Monocytes Absolute Auto 0.93 K/mm3 (0.10-0.90); Monocytes Percent Auto 9.2 % (2.0-11.0); Neutrophils Absolute Auto 4.3 K/mm3 (1.7-7.2); Neutrophils Percent Auto 42.3 % (50.0-70.0); Platelet Count Result 400 K/mm3 (150-420); Red Blood Count 5.02 M/mm3 (4.20-5.40); Red Cell Distribution Width 12.8 % (11.6-14.4); White Blood Count 10.1 K/mm3 (4.8-10.8)
[2023-07-16] MEDS: SODIUM CHLORIDE 0.9% IV 1,000 ML 999 ML IV CONT (19:52)
[2023-07-16 20:03] LABS: Alanine Aminotransferase 14 U/L (14-59); Albumin Level 3.7 g/dL (3.4-5.0); Alkaline Phosphatase 128 U/L (46-116); Anion Gap 8 mmol/L (8-16); Aspartate Amino Transferase < 10 U/L (15-37); Bilirubin,Total 0.2 mg/dL (0.00-1.00); Blood Urea Nitrogen 16 mg/dL (7-18); Calcium 8.7 mg/dL (8.5-10.1); Carbon Dioxide 30 mmol/L (21-32); Chloride 100 mmol/L (98-108); Estimated CRCL calculation 74 ml/min; Estimated Glomerular Filt Rate > 60; Glucose 97 mg/dL (70-99); Osmolality Calculated 287 mOsm/kg (285-295); Sodium 138 mmol/L (136-145)
[2023-07-16 20:35] LABS: Appearance Urine Clear (Clear); Bilirubin Urine Negative (Negative); Blood Urine Negative (Negative); Color Urine Light Yellow (Yellow); Glucose Urine UA Negative (Negative); Ketones Urine Negative (Negative); Leukocyte Esterase Ur Negative LEU/UL (Negative); Nitrate Urine Negative (Negative); Protein Urine Negative (Negative); Specific Grav Ur <= 1.005 (1.010-1.020); Urobilinogen Urine 0.2 mg/dL (0.2-1.0); pH Urine 6.5 (5.0-8.0)
[2023-07-16 20:37] LABS: Add Urine Microscopic? NO
[2023-07-16 20:38] LABS: Pregnancy On Board Control Positive; Urine Pregnancy Test Negative
[2023-07-16 20:42] LABS: Amphetamine Screen Urine Negative (Negative); Barbiturate Screen Urine Negative (Negative); Benzodiazepines Screen Urine Negative (Negative); Cannabinoid Screen Urine Negative (Negative); Cocaine Screen Urine Negative (Negative); Methadone Screen Urine Negative (Negative); Opiate Screen Urine Negative (Negative); Phencyclidine Screen Urine Negative (Negative)
[2023-07-16 20:56] VITALS: BP 119/77; PULSE 85; RESP 18; TEMP 37; O2SAT 100
== END 2023-07-16 20:56 | disposition home or self-care (01) ==
PROVIDERS: Emergency Provider Emergency Medicine; PCP Family Medicine
DX: R55 Syncope and collapse (principal)
CPT/HCPCS: 36415; 70450; 80053; 80307; 81003; 81025; 85025; 93005; 96360; 99284; J7030

== ENCOUNTER 2024-02-02 12:02 | Outpatient (CLI) | payer OTHER, SELFPAY ==
--- NOTE | ~2024-02-02 | XR_ITS ---
Clinical Indication: Chest pain PA and lateral views of the chest: Comparison: 06/04/2022 Findings: The lungs are clear, without evidence of focal consolidation or pleural effusion. Cardiome diastinal silhouette is within normal limits. Bones and soft tissues are unremarkable. Impression: Normal chest. Reviewed, dictated and finalized at location . Impression: Normal chest.
[2024-02-02 12:29] LABS: Basophils Absolute Auto 0.06 K/mm3 (0.00-0.10); Basophils Percent Auto 0.8 % (0.0-1.0); Eosinophils Absolute Auto 0.24 K/mm3 (0.02-0.50); Hematocrit 43.8 % (35.0-49.0); Hemoglobin 14.4 g/dL (12.0-15.0); Immature Granulocyte Absolute 0.03 K/mm3 (0.00-0.00); Immature Granulocyte Percent A 0.4 % (0.0-0.0); Lymphocytes Absolute Auto 2.35 K/mm3 (1.10-4.50); Lymphocytes Percent Auto 29.5 % (18.0-42.0); Mean Corpuscular HGB Conc 32.9 g/dL (32-36); Mean Corpuscular Hemoglobin 27.5 pg (27.0-31.0); Mean Corpuscular Volume 83.7 fL (78.0-102.0); Mean Platelet Volume 9.9 fl (9.2-11.8); Monocytes Absolute Auto 0.72 K/mm3 (0.10-0.90); Neutrophils Absolute Auto 4.57 K/mm3 (1.70-7.20); Neutrophils Percent Auto 57.3 % (50.0-70.0); Platelet Count Result 366 K/mm3 (150-420); Red Blood Count 5.23 M/mm3 (4.20-5.40); Red Cell Distribution Width 12.1 % (11.6-14.4)
[2024-02-02 12:57] LABS: Alanine Aminotransferase 10 U/L (14-59); Albumin Level 3.7 g/dL (3.4-5.0); Alkaline Phosphatase 131 U/L (46-116); Anion Gap 4 mmol/L (4-12); Aspartate Amino Transferase 14 U/L (15-37); Bilirubin,Total 0.2 mg/dL (0.00-1.00); Blood Urea Nitrogen 15 mg/dL (7-18); Calcium 8.9 mg/dL (8.5-10.1); Carbon Dioxide 33 mmol/L (21-32); Chloride 102 mmol/L (98-108); Estimated Glomerular Filt Rate > 60; Glucose 101 mg/dL (70-99); NT Pro B Type Natriuretic Pept 91 pg/mL (0-125); Osmolality Calculated 288 mOsm/kg (285-295); Potassium 3.9 mmol/L (3.5-5.1); Sodium 139 mmol/L (136-145); Total Protein 7.8 g/dL (6.4-8.2)
[2024-02-02 13:09] LABS: Troponin I < 4.0 ng/L (0.00-60.4)
== END 2024-02-02 12:03 | disposition home or self-care (01) ==
PROVIDERS: PCP Family Medicine; Visit Provider Family Medicine
DX: R07.9 Chest pain, unspecified (principal)
CPT/HCPCS: 36415; 71046; 80053; 83880; 84484; 85025

== ENCOUNTER 2024-12-22 16:14 | Outpatient (CLI) | payer MEDICAID, SELFPAY ==
--- NOTE | ~2024-12-22 | XR_ITS ---
Lumbosacral Spine: AP and lateral views Clinical History: Pain Findings: The normal lordotic curve is maintained. The vertebral bodies and posterior elements are i ntact. The intervertebral disc spaces are preserved. The sacroiliac joints are normally outlined. Impression: No significant abnormality. Reviewed, dictated and finalized at [facility]. Impression: No significant abnormality.
--- NOTE | ~2024-12-22 | XR_ITS ---
Thoracic spine: Clinical Indication: Back pain AP and lateral views were performed. No fracture is seen. There is normal alignment of the vertebrae. There is multilevel mild degenerati ve disc change. Paravertebral soft tissues appear normal. Impression: Multilevel mild degenerative disc change. Reviewed, dictated and finalized at [facility]. Impression: Multilevel mild degenerative disc change.
--- OUTSIDE RECORDS SUMMARY | 2024-12-22 16:19 | XMS_ITS | Encounter Summary ---
Author Organization [facility] Address [facility] [place] [address] Care Team Providers Care Machine Filler Servicer Name Role Phone None, Provider Primary Care Provider Raphael Lewis MD Primary Care Provider Encounter Details Date Type Department Care Team (Late st Contact Info) Description 10/29/2018 Abstract [facility]FL CONVERSION [address] [place] [address] , Generic Conversion, Social History Tobacco Use Types Packs/Day Years Used Date Smoking Tobacco: Never Assessed Comments Unknown Sex and Gender Information Value Date Recorded Sex Assigned at Not on file Legal Sex Female 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
--- OUTSIDE RECORDS SUMMARY | 2024-12-22 16:19 | XMS_ITS | Clinical Summary ---
Author Organization [facility] Address Formerly [facility] [place] [address] Care Team Providers Care Vein Pumper Name Role Phone Raphael Dos Santos MD Primary Care Provider [phone] Allergies Active Allergy Reactions Criticality Noted Date Comments Penicillins Swelling 11/18/2022 Medications vitamin, low iron, ( VITAMIN WITH IRON) 27-0.8 MG tablet Take 1 tablet by mouth daily. Active aspirin 81 MG chewable tablet Chew 1 tablet (81 mg total) by mouth daily. Active escitalopram (LEXAPRO) 20 MG tablet Take 1 tablet (20 mg total) by mouth daily. Active Family History Medical History Relation Comments Mental Health Father Relation Status Comments Father Alive Mother Alive Social History Tobacco Use Types Packs/Day Years Used Date Smoking Tobacco: Never Smokeless Tobacco: Never Tobacco Cessation:Counseling Given: Not Answered Alcohol Use Standard Drinks/Week Comments Not Currently 0 (1 standard drink = 0.6 oz pur e alcohol) Comments No Sex and Gender Information Value Date Recorded Sex Assigned at Not on file Legal Sex Female 12:17 PM SEWER HEAD Gender Identity Not on file Sexual Orientation Not on file Last Filed Vital Signs Vital Sign Reading Time Taken Comments Blood Pressure 123/77 11/19/2022 12:31 AM CDT Pulse 78 11/19/2022 12:31 AM CDT Temperature 36.3 C (97.4 F) 11/19/2022 12:31 AM CDT Respiratory Rate 20 11/19/2022 12:31 AM CDT Oxygen Saturation 100% 11/18/2022 11:33 PM CDT Inhaled Oxygen Concentration - - Weight 76.7 kg (169 lb) 11/18/2022 11:33 PM CDT Height 154.9 cm (5' 1) 11/18/2022 11:33 PM CDT Body Mass Index 31.93 11/18/2022 11:33 PM CDT Plan of Treatment Health Maintenance Due Date Last Done Comments Cervical Cancer Screening Pap Smear (Age 21 to 29) Every 3 Years 1995 Cervical Cancer Screening 1995 Annual Physical 1998 COVID-19 Vaccine ( - season) 2024 08/15/2021 DTaP, Tdap and Td Vaccines (6 - Td or Tdap) 04/01/2026 04/01/2016, 01/10/2007, 06/24/2000, Additional history exists Hepatitis B Vaccines Completed 10/04/1997, 04/27/1996, 1995 Meningococcal Vaccine Aged Out 01/10/2007 No sage marjorie eligible based on patient's age to complete this topic HPV Vaccines Completed 08/24/2007, 01/2007, 01/10/2007 Hepatitis C Completed 09/11/2022, 09/11/2022 Meningococcal B Vaccine Aged Out No l onger eligible based on patient's age to complete this topic Pneumococcal Vaccine: Pediatrics (0 to 5 Years) and At-Risk Patients (6 to 49 Years) Aged Out No longer eligible based on patient's age to complete this topic RSV Immunizations Under 20 Months Aged Out No longer eligible based on patient's age to complete this topic Insurance [place]ICAID [place] Care Teams Vein Pumper Relationship Specialty Start Date End Date Raphael Dos Santos MD [address] [place] [address] PCP - General FAMILY PRACTICE 11/19/22
--- OUTSIDE RECORDS SUMMARY | 2024-12-22 16:19 | XMS_ITS | Clinical Summary ---
Author Organization [facility] Address [address] [place] [address] Care Team Providers Care Certified Pathology Assistant Name Role Phone Raphael Dos Santos MD Primary Care Provider [phone] Source Comments [facility],non-owned Affiliates and Associated Physician Practices is amultiple site organization consisting of ambulatory clinics and hospital sitesin [place], [place], [place] and [place]. This disclosure is being madepursuant to the Care Everywhere program and may not contain all information available regarding this patient. Last updated 18.[facility] Allergies Active Allergy Reactions Criticality Noted Date Comments Penicillins Rash Medium 01/11/2023 Medications * Be aware that medications may not be up to date on this document. Alwaysverify current medications with the patient. Vit-Fe Fumarate-FA ( vitamin) 28-0.8 MG tablet Take 1 (one) tablet by mouth once daily Active aspirin (Aspirin) 81 MG chew tablet Take 1 (one) tablet by mouth once daily Active ferrous sulfate 325 (65 FE) MG tablet Take 1 (one) tablet by mouth once daily Active escitalopram (Lexapro) 20 MG tablet Take 1 (one) tablet by mouth once daily Active Active Problems Problem Noted Date Diagnosed Date Encounter for screenin g for congenital cardiac abnormalities 04/11/2021 Resolved Problems Problem Noted Date Diagnosed Date Resolved Date Depression screen 01/11/2023 03/29/2023 Overview (01/11/2023): 01/11/2023 Gautam Barba was screened for depression using the Wolcott Depression Scale (EPDS) at her [facility] initial evaluation on 01/11/2023. Her initial score at baseline was 6. Based off of her score of 6, Gautam does not warrant follow up. Patient will continue to be screened throughout , at intervals no closer than two weeks, for continued surveillance and early identification of depression until delivery. Patient reports mental health history. Diagnoses include depression, anxiety, PTSD. abnormality in 12/22/2022 03/29/2023 Overview (01/13/2023): Images from the original note were not included. PENITENTIARY PATIENT--PLEASE CALL [phone] (ex 2) IF TRIAGED OR ADMITTED Care Provider: Dr. Samara Regan [facility] consultants involved: RN- Joelle; M- Dr. Rasheed; Open Die Inspector- Dr. Roth; Pediatric Urology CLERICAL GRADER- Bridget Evans Diagnosis: Right UTD A-1; Choion amnion separation seen near the placental cord insertion consistent with possible amniotic band but not syndrome-fetus is not affected and limbs and body parts are free flowing. No constriction of the umbilical cord. 01/11/23 echo: within normal limits Planned surveillance: Initial PENITENTIARY 01/11/23. Follow-up ultrasound at [facility] at 34 weeks & 38 weeks gestation. Continue routine care. Delivery location: with primary OB at hospital of choice ([facility]) Delivery mode: per usual OB indications Desired Delivery GA: No indication for delivery before 39 weeks at this time follow up: per pediatric urology: Recommendations for UTDA1 (Urinary Tract Dilation- A1) Unilateral or Bilateral on ultrasound a. Ok to deliver at hospital of parents' choosing b. Monitor urine output during hospital stay c. Monitor blood pressure during hospital stay d. Parent to schedule a renal ultrasound & follow up appointment at greater than 48 hours after but less than 1 month of life by calling Keyla Avina, clinical nurse, at [phone] e. Ok to circumcise male infant with normal urethral meatus Electrical Estimator: Dr. Dos Santos Genetics note: LR NIPT (M) X Ray Equipment Servicer Concerns: 01/11/2023-Patient with history of anxiety, depression, PTSD and panic disorder; does take 20mg Zoloft and sees psychiatry Care plan based on evaluation and is subject to change based on assessment. See Images or Cardiac under Chart Review for US/ ECHO/ MRI reports. Social History Tobacco Use Types Packs/Day Years Used Date Smoking Tobacco: Never Assessed Tobacco Cessation:Counseling Given: Not Answered Wolcott Depression Scale Answer Date Recorded Wolcott Depression Scale Total 6 01/11/2023 The thought of harming myself has occurred to me . Never 01/11/2023 Comments No Sex and Gender Information Value Date Recorded Sex Assigned at Not on file Legal Sex Female 2:22 PM CDT Gender Identity Not on file Sexual Orientation Not on file Last Filed Vital Signs Vital Sign Reading Time Taken Comments Blood Pressure 120/90 01/11/2023 10:34 AM CDT Pulse 105 01/11/2023 10:34 AM CDT Temperature - - Respiratory Rate - - Oxygen Saturation - - Inhaled Oxygen Concentration - - Weight 77.4 kg (170 lb 10.2 oz) 023 10:34 AM CDT Height - - Body Mass Index - - Plan of Treatment Health Maintenance Due Date Last Done Comments HEPATITIS C SCREENING 03/22/2013 DTAP/TDAP/TD VACCINES (1 - Tdap) 2014 HEPATITIS B VACCINE (1 of 3 - 19+ 3-dose series) 2014 PAP SMEAR 2016 HPV VACCINE (1 - 3-dose SCDM series) 2022 COVID-19 VACCINE (2 - 2023-2 5 season) 2024 08/15/2021 DEPRESSION SCREENING 05/24/2024 INFLUENZA VACCINE (#1) 2025 6, 03/03/2013 ZOSTER VACCINE (1 of 2) 2045 HIV SCREENING Completed 12/30/2022 HIB VACCINE Aged Out No longer eligi ble based on patient's age to complete this topic MENINGOCOCCAL (Group B) VACCINE SHARED DECISION-MAKING Aged Out No longer eligible based on patient's age to complete this topic MENINGOCOCCAL GROUPS A/C/Y/W VACCINE Aged Out No longer eligible b ased on patient's age to complete this topic PNEUMOCOCCAL VACCINE Aged Out No long er eligible based on patient's age to complete this topic Insurance [employer] NO INSURANCE Member Subscriber Plan / Payer (Ef fective for All Dates) Name:Gautam Barba Member ID:Not on file Relation to Subscriber:Not on file Name:GAUTAM BARBA Subscriber ID:Not on file Address: [address] [place] [id number] Payer ID:Not on file Group ID:Not on file Type:Self Pay Address: [place], [place] Care Teams Certified Pathology Assistant Relationship Specialty Start Date End Date Raphael Dos Santos MD [address] [place] [id number] PCP - General 06/24/21
== END 2024-12-22 16:15 | disposition home or self-care (01) ==
LOC: CHSLAB 16:17
PROVIDERS: PCP Family Medicine; Visit Provider Family Medicine
DX: M54.9 Dorsalgia, unspecified (principal)
CPT/HCPCS: 72072; 72100

== ENCOUNTER 2025-01-01 08:17 | Outpatient (RCR) | payer MEDICAID, SELFPAY ==
--- NOTE | 2025-01-01 09:02 | OPREHPOC ---
Outpatient Therapy Plan of Care This is a Multidisciplinary Plan of Care that may contain components documented by all disciplines (PT, OT, and ST.) PT Problem 1 PT Problem #1 Knowledge Deficit PT Goal 1 Goal / Goal Update independent and compliant with HEP Target Visit 6 PT Problem 2 PT Problem #2 Pain PT Goal 1 Goal / Goal Update 3/10 pain or less at worst in the lower back in the last week. Target Visit 12 PT Problem 3 PT Problem #3 Impaired Strength PT Goal 1 Goal / Goal Update improve core strength to 4/5 or better overall improve bilateral hip strength to 4+/5 or better improve bilateral knee strength to 5/5 overall Target Visit 12 PT Problem 4 PT Problem #4 Impaired Range of Motion PT Goal 1 Goal / Goal Update 100% active lumbar rom without pain or guarding Target Visit 12 PT Problem 5 PT Problem #5 Impaired Functional Mobility PT Goal 1 Goal / Goal Update oswestry to display less than 10% functional deficits patient to ambulate with more fluid movement and arm swing/shoulder rotation patient to lift and carry kids without increased lower back pain Target Visit 12
--- NOTE | 2025-01-01 09:02 | PTOPEVAL1 ---
Assessment and note entered by JT File, PT Evaluation Information Assessment Status Evaluation ICD-10 Condition Codes (PT) Pain in low back M54.50 Subjective Information patient reports she is having pain in the lower back. 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 she reports she is constantly moving which helps, but at the end of the day she struggles to get comfortable or get back up from sitting. she reports this has all been going on since 2022 when she was last . she reports she is steam box tender in the area she had her epidural injection. she reports a couple months ago she did fall down the steps which did not help her pain. she reports she does have pain straight across the hips, and down the R LE at times. Reported Pain Level Pain Score 3: Self Report Assessment PT Clinical Summary mrs. casillas is a 29 yo woman who presents to skilled PT services for evaluation and treatment of lower back pain. she presents this date with core weakness, mm tightness, hip weakness, and deficits in daily functional activity performance. continued skilled PT is indicated to improve her objective/functional deficits and progress towards a return to her prior level functional activity performance/quality of life. Plan of Care Interventions Electrical Stimulation,Gait Training,Hot Pack/Cold Pack,Manual Therapy,Neuro Re-education,Patient/ Caregiver Education,Therapeutic Activities, Therapeutic Exercise PT Services Indicated Yes Treatment Frequency and 2x weekly for 12 visits Duration These treatments will address the objective and functional deficits as defined above. The patient will be advanced safely and appropriately in order for the patient to progress towards his/her prior level of function. Additional exercises will be introduced and as well as a comprehensive home exercise program upon discharge, if needed, ?to ensure carryover of functional gains achieved in the clinic. This treatment plan has been reviewed and agreement upon by the patient.
--- NOTE | 2025-01-17 10:57 | PCPTNOTE ---
Patient did not show up for scheduled appointment this date. -Jyoti Zayas, PT
== END 2025-04-01 23:59 | disposition home or self-care (01) ==
LOC: CHSPT 08:17
PROVIDERS: PCP Family Medicine; Visit Provider Family Medicine
DX: M54.9 Dorsalgia, unspecified (principal)
CPT/HCPCS: 97014; 97110; 97140; 97161; G0283

== ENCOUNTER 2025-05-11 16:05 | Outpatient (CLI) | payer OTHER, SELFPAY ==
[2025-05-11 16:58] LABS: Strep Group A RT-PCR NOT DETECTED (Negative)
[2025-05-11 17:08] LABS: Influenza A QL RT-PCR Negative (Negative); Influenza B QL RT-PCR Negative (Negative); RSV RNA, RT-PCR Negative (Negative); SARS-CoV-2 RNA PCR Negative (Negative)
== END 2025-05-11 16:06 | disposition home or self-care (01) ==
LOC: CHSLAB 16:07
PROVIDERS: PCP Family Medicine; Visit Provider Family Medicine
DX: J06.9 Acute upper respiratory infection, unspecified (principal)
CPT/HCPCS: 87637; 87651